=== PATIENT | male | born 1935 | race Caucasian/White ===

== ENCOUNTER 2017-10-29 03:33 | Inpatient (IN) | payer MEDICARE, OTHER ==
[2017-10-29 03:43] VITALS: BMI 25.6
[2017-10-29] MEDS ORDERED: ONDANSETRON 4 MG/2 ML VIAL IVPB ONE (04:31)
[2017-10-29] MEDS ORDERED: FAMOTIDINE 20 MG/50 ML IVPB 20 MG/50 ML MG IVPB ONE ×2 (04:31→05:58)
[2017-10-29] MEDS ORDERED: morphine CARPU-JECT 2 MG/1 ML DISP.SYRIN IVPUSH ONE (04:31)
--- NOTE | 2017-10-29 04:40 | PDOC ---
History of Present Illness - History of Present Illness Initial Comments: 10/29/17 05:08 The patient is a 82 year old male, with a significant past medical history of HTN, CAD, PAD, A-fib (on Eliquis), pancreatitis on creon, OA,and RA, who presents to the emergency department with, 2 days of right upper quadrant pain. As per patient, his symptoms onset yesterday and is described as constant radiating to his right shoulder. He reports nausea with one episode of emesis. He denies any recent fevers, chills, headache or dizziness. He denies any recent diarrhea or constipation. He denies any recent chest pain or shortness of breath. He denies any recent dysuria, frequency, urgency or hematuria. Allergies: NKA Past surgical history: None reported. Social History: Nonsmoker. Denies EtOH use and recreational drug use. Primary Care Physician: Dr. Cazares <Farnaz Rodriguez - Last Filed: 10/29/17 06:39> - General History Source: Patient Exam Limitations: No Limitations <Dvein Everett - Last Filed: 10/31/17 08:46> - General Chief Complaint: Pain Stated Complaint: ABDOMINAL PAIN Time Seen by Provider: 10/29/17 04:05 Past History <Farnaz Rodriguez - Last Filed: 10/29/17 06:39> - Past Medical History Cardiac Disorders: Yes (a-fib) COPD: No GI Disorders: Yes (pancreas, cholelithiasis) HTN: Yes Hypercholesterolemia: Yes Lung CA: Yes (?) - Surgical History Abdominal Surgery: Yes (umbilical hernia repair) Cholecystectomy: (needs sx but has not done it due to Afib) - Immunization History Immunization Up to Date: Yes - Suicide/Smoking/Psychosocial Hx Smoking History: Never smoked Information on smoking cessation initiated: No Hx Alcohol Use: No Drug/Substance Use Hx: No Substance Use Type: None, Alcohol <Devin Everett - Last Filed: 10/31/17 08:46> - Past Medical History Allergies/Adverse Reactions: Allergies Allergy/AdvReac Type Severity Reaction Status Date / Time No Known Allergies Allergy Verified 10/12/17 18:58 Home Medications: Ambulatory Orders Amlodipine Besylate 5 mg PO DAILY 10/12/17 Apixaban [Eliquis] 5 mg PO BID 10/12/17 Atorvastatin Ca [Lipitor] 20 mg PO HS 10/12/17 Carvedilol 12.5 mg PO DAILY 10/12/17 Furosemide [Lasix -] 20 mg PO DAILY 10/12/17 Losartan Potassium 100 mg PO DAILY 10/12/17 Naproxen 500 mg PO DAILY 10/12/17 Tamsulosin HCl 0.4 mg PO DAILY 10/12/17 Acetaminophen [Tylenol -] 650 mg PO Q6H PRN 10/29/17 Bimatoprost [Lumigan] 1 drop OU HS 10/29/17 Lipase/Protease/Amylase [Miky Robbins 36,000 Units Capsule] 2 each PO BID 10/29/17 Naproxen/Esomeprazole Mag [Eber Robbins 500-20 mg Tablet] 1 each PO DAILY 10/29/17 Review of Systems - Review of Systems Able to Perform ROS?: Yes Comments:: 10/29/17 05:09 GENERAL/CONSTITUTIONAL: No fever or chills. No weakness. HEAD, EYES, EARS, NOSE AND THROAT: No change in vision. No ear pain or discharge. No sore throat. CARDIOVASCULAR: No chest pain or shortness of breath. RESPIRATORY: No cough, wheezing, or hemoptysis. +GASTROINTESTINAL: RUQ abdominal pain. Nausea and vomiting. No diarrhea or constipation. GENITOURINARY: No dysuria, frequency, or change in urination. MUSCULOSKELETAL: No joint or muscle swelling or pain. No neck or back pain. SKIN: No rash NEUROLOGIC: No headache, vertigo, loss of consciousness, or change in strength/ sensation. ENDOCRINE: No increased thirst. No abnormal weight change. HEMATOLOGIC/LYMPHATIC: No anemia, easy bleeding, or history of blood clots. ALLERGIC/IMMUNOLOGIC: No hives or skin allergy. All Other Systems: Reviewed and Negative <Farnaz Rodriguez - Last Filed: 10/29/17 06:39> *Physical Exam - Vital Signs Last Vital Signs Temp Pulse Resp BP Pulse Ox 99.9 F H 68 20 157/85 95 10/29/17 03:40 10/29/17 03:40 10/29/17 03:40 10/29/17 03:40 10/29/17 03:40 - Physical Exam Comments: 10/29/17 05:10 GENERAL: Awake, alert, and fully oriented, in no acute distress HEAD: No signs of trauma EYES: PERRLA, EOMI, sclera anicteric, conjunctiva clear ENT: Auricles normal inspection, hearing grossly normal, nares patent, oropharynx clear without exudates. Moist mucosa NECK: Normal ROM, supple, no lymphadenopathy, JVD, or masses LUNGS: Breath sounds equal, clear to auscultation bilaterally. No wheezes, and no crackles +HEART: Irregularly irregular. no murmurs, rubs or gallops +ABDOMEN: Tenderness to RUQ and epigastric region. [place] negative. Soft, normoactive bowel sounds. No guarding, no rebound. No masses EXTREMITIES: Normal range of motion, no edema. No clubbing or cyanosis. No cords, erythema, or tenderness NEUROLOGICAL: Cranial nerves II through XII grossly intact. Normal speech, normal gait SKIN: Warm, Dry, normal turgor, no rashes or lesions noted. <Farnaz Rodriguez - Last Filed: 10/29/17 06:39> - Vital Signs Last Vital Signs Temp Pulse Resp BP Pulse Ox 99.9 F H 68 20 157/85 95 10/29/17 03:40 10/29/17 03:40 10/29/17 03:40 10/29/17 03:40 10/29/17 03:40 <Devin Everett - Last Filed: 10/31/17 08:46> ED Treatment Course - LABORATORY CBC & Chemistry Diagram: 10/29/17 05:20 10/29/17 05:20 <Farnaz Rodriguez - Last Filed: 10/29/17 06:39> - LABORATORY CBC & Chemistry Diagram: 10/31/17 06:10 10/31/17 06:10 - RADIOLOGY Radiology Studies Ordered: Category Date Time Status CHEST X-RAY PORTABLE* [RAD] Stat Radiology 10/29/17 04:30 Ordered ABDOMEN US [US] Stat Ultrasound 10/29/17 04:30 Ordered <Devin Everett - Last Filed: 10/31/17 08:46> Medical Decision Making - Medical Decision Making 10/29/17 04:37 A portion of this note was written by my scribe, under my supervision. Vital Signs Temp Pulse Resp BP Pulse Ox 99.9 F H 68 20 157/85 95 10/29/17 03:40 10/29/17 03:40 10/29/17 03:40 10/29/17 03:40 10/29/17 03:40 82 year old M c/ hx of HTN, OA, RA, CAD, PAD, pancreatitis on creon p/w RUQ pain since yesterday. The patient reports that he was unable to sleep. Had constant RUQ pain radiating to right shoulder. Stated that he felt nauseous and vomited once. Denies fevers at home. Denies diarrhea. Pt states that he has had issues with his gallbladder and pancreas before. Denies chest pain, SOB. Pt is quite tender in the RUQ. Temp is 99.9 degrees. Will need to r/o acute cholecystitis, vs. biliary colic. Labs including lipase, RUQ ultrasound, and labs. Pain control and reassess. 10/29/17 07:00 CBC, BMP 10/29/17 05:20 10/29/17 05:20 CMP Sodium 141 mmol/L (136-145) 10/29/17 05:20 Potassium 4.0 mmol/L (3.5-5.1) 10/29/17 05:20 Chloride 105 mmol/L (98-107) 10/29/17 05:20 Carbon Dioxide 27 mmol/L (21-32) 10/29/17 05:20 Anion Gap 9 (8-16) 10/29/17 05:20 BUN 12 mg/dL (7-18) 10/29/17 05:20 Creatinine 0.9 mg/dL (0.7-1.3) 10/29/17 05:20 Creat Clearance w eGFR > 60 (>60) 10/29/17 05:20 Random Glucose 104 mg/dL (74-106) 10/29/17 05:20 Lactic Acid 2.7 mmol/L (0.0-2.0) H* 10/29/17 05:20 Calcium 9.3 mg/dL (8.5-10.1) 10/29/17 05:20 Phosphorus 3.1 mg/dL (2.5-4.9) 10/29/17 05:20 Magnesium 1.8 mg/dL (1.8-2.4) 10/29/17 05:20 Total Bilirubin 0.8 mg/dL (0.2-1.0) 10/29/17 05:20 AST 14 U/L (15-37) L 10/29/17 05:20 ALT 21 U/L (12-78) 10/29/17 05:20 Alkaline Phosphatase 91 U/L (45-117) 10/29/17 05:20 Creatine Kinase 219 IU/L (39-308) 10/29/17 05:20 Creatine Kinase Index 0.5 % (0.0-5.0) 10/29/17 05:20 CK-MB (CK-2) 1.31 ng/mL (0.5-3.6) 10/29/17 05:20 Troponin I 0.02 ng/ml (0.00-0.05) 10/29/17 05:20 Total Protein 8.0 g/dl (6.4-8.2) 10/29/17 05:20 Albumin 3.8 g/dl (3.4-5.0) 10/29/17 05:20 Lipase 58 U/L (73-393) L 10/29/17 05:20 Lactic acid 2.7. Ultrasound pending. Case signed out to day time attending Dr. Biggs for further management and disposition. <Devin Everett - Last Filed: 10/31/17 08:46> *DC/Admit/Observation/Transfer - Attestations Scribe Attestion: 10/29/17 05:10 Documentation prepared by Farnaz Rodriguez, acting as medical front desk coordinator for Devin Everett MD. <Farnaz Rodriguez - Last Filed: 10/29/17 06:39> <Devin Everett - Last Filed: 10/31/17 08:46> Diagnosis at time of Disposition: Cholecystitis - Discharge Dispostion Condition at time of disposition: Stable
[2017-10-29 05:29] LABS: BASO % 0.5 % (0-2.0); EOS % 0.3 % (0-4.5); HEMOGLOBIN 13.3 GM/dL (11.7-16.9); LYMPH % 20.4 % (8-40); MCH 31.1 pg (25.7-33.7); MCHC 33.2 g/dl (32.0-35.9); MEAN CELL VOLUME 93.8 fl (80-96); MEAN PLT VOLUME 10.5 fl (7.5-11.1); MONO % 9.1 % (3.8-10.2); NEUT % 69.7 % (42.8-82.8); PLATELET COUNT 148 K/MM3 (134-434); RBC 4.26 M/mm3 (4.00-5.60); RDW 14.4 % (11.9-15.9); WHITE BLOOD COUNT 4.5 K/mm3 (4.0-10.0)
[2017-10-29 05:55] LABS: ALBUMIN 3.8 g/dl (3.4-5.0); ANION GAP 9 (8-16); BILIRUBIN,TOTAL 0.8 mg/dL (0.2-1.0); BLOOD UREA NITROGEN 12 mg/dL (7-18); CALCIUM 9.3 mg/dL (8.5-10.1); CHLORIDE 105 mmol/L (98-107); CO2 27 mmol/L (21-32); CREATININE 0.9 mg/dL (0.7-1.3); GLUCOSE,RANDOM 104 mg/dL (74-106); LIPASE 58 U/L (73-393); MAGNESIUM 1.8 mg/dL (1.8-2.4); PHOSPHOROUS 3.1 mg/dL (2.5-4.9); SGOT/AST 14 U/L (15-37); SGPT/ALT 21 U/L (12-78); SODIUM 141 mmol/L (136-145)
[2017-10-29 05:56] LABS: ALK PHOS 91 U/L (45-117)
[2017-10-29] MEDS ORDERED: ONDANSETRON 4 MG/2 ML VIAL ONE (05:58)
[2017-10-29] MEDS ORDERED: MORPHINE SULFATE 2 MG/ML VIAL ONE (05:58)
[2017-10-29 07:15] LABS: INR 1.56 (0.82-1.09); PROTHROMBIN TIME (PATIENT) 17.6 SEC (9.7-13.0)
--- NOTE | 2017-10-29 07:19 | PDOC ---
*Physical Exam - Vital Signs Last Vital Signs Temp Pulse Resp BP Pulse Ox 99.9 F H 68 20 157/85 95 10/29/17 03:40 10/29/17 03:40 10/29/17 03:40 10/29/17 03:40 10/29/17 03:40 - Physical Exam Comments: 10/29/17 08:16 Appearance: appears in pain. HEENT: head is normocephalic, atraumatic. EOMI. PERRLA. Neck: supple without lymphadenopathy Heart: regular rhythm. Murmur noted. Lungs: clear to auscultation bilaterally. no crackles, rhonchi or wheezing. no stridor. Abdomen: soft, flat. moderate RUQ and RLQ tenderness to palpation. normal bowel sounds. no rebound, guarding, masses. Extremities: Peripheral pulses intact and equal. No lower extremity edema. Neurological: Alert. Oriented x3. CN 2-12 grossly intact. Moves all four extremities. ED Treatment Course - LABORATORY CBC & Chemistry Diagram: 10/29/17 05:20 10/29/17 05:20 - ADDITIONAL ORDERS Additional order review: Laboratory Results 10/29/17 10/29/17 10/29/17 05:20 05:20 05:20 INR 1.56 H PTT (Actin FS) 33.0 Sodium 141 Potassium 4.0 Chloride 105 Carbon Dioxide 27 Anion Gap 9 BUN 12 Creatinine 0.9 Creat Clearance w eGFR > 60 Random Glucose 104 Lactic Acid 2.7 H* Calcium 9.3 Phosphorus 3.1 Magnesium 1.8 Total Bilirubin 0.8 AST 14 L ALT 21 Alkaline Phosphatase 91 Creatine Kinase 219 Creatine Kinase Index 0.5 CK-MB (CK-2) 1.31 Troponin I 0.02 Total Protein 8.0 Albumin 3.8 Lipase 58 L 10/29/17 05:20 RBC 4.26 MCV 93.8 MCHC 33.2 RDW 14.4 MPV 10.5 Neutrophils % 69.7 Lymphocytes % 20.4 Monocytes % 9.1 Eosinophils % 0.3 Basophils % 0.5 - Medications Given in the ED: ED Medications Discontinued Medications Generic Name Dose Route Start Last Admin Trade Name Freq PRN Reason Stop Dose Admin Famotidine/Sodium Chloride 20 mg in 50 mls @ 100 mls/hr 10/29/17 04:31 06:10 Pepcid 20 Mg Premixed Ivpb - IVPB 10/29/17 05:00 100 mls/hr ONCE ONE Administration Morphine Sulfate 2 mg 10/29/17 04:31 10/29/17 06:09 Morphine Injection - IVPUSH 10/29/17 04:32 2 mg ONCE ONE Administration Ondansetron HCl 4 mg 10/29/17 04:31 10/29/17 06:10 Zofran Injection IVPB 10/29/17 04:32 4 mg ONCE ONE Administration Medical Decision Making - Medical Decision Making 10/29/17 08:18 82 year old male with chronic pancreatitis, HTN, HLD, CAD, A-fib, OA, RA presenting for RUQ pain radiating to the shoulder, associated with nausea and 1 episode of vomiting. Initial Vital Signs Temp Pulse Resp BP Pulse Ox 99.9 F H 68 20 157/85 95 10/29/17 03:40 10/29/17 03:40 10/29/17 03:40 10/29/17 03:40 10/29/17 03:40 Mild fever, no tachycardia, no hypotension. CBC/CMP within normal limits. Lactate 2.7. Lipase within normal limits. Pt given Pepcid, Morphine 2 mg, and Zofran with slight improvement of pain. Pending RUQ US, CXR. 10/29/17 08:41 RUQ US report - 1.3 cm round calculus in the GB neck. mild diffuse GB wall thickening. trace perihepatic fluid. Pending rectal temperature. IV fluids ordered. Will page surgery. 10/29/17 09:27 Rectal temperature 100.8 10/29/17 09:[address] Watters, who will consult on the patient, he states he believes the patient may be a better candidate for IR than surgery. Pending Dr. Watters' evaluation. 10/29/17 10:01 I spoke with Fauzia Morgan, who is covering for Dr. Guallpa, and discussed the case. She will wait on Dr. Lagunas's evaluation before putting in admission orders. 10/29/17 10:[address] Watters, who states he will accept the patient, to be admitted to Dr. Guallpa. 10/29/17 11:34 I spoke with the patient via engineering manager phone, and informed him that he will be admitted to the hospital for surgical removal of his gallbladder. He stated he understood and agreed with the plan of care. *DC/Admit/Observation/Transfer Diagnosis at time of Disposition: Cholecystitis - Discharge Dispostion Condition at time of disposition: Stable Decision to Admit order: Yes - Referrals - Patient Instructions - Post Discharge Activity
[2017-10-29] MEDS ORDERED: SODIUM CHLORIDE 1,000 ML IV STA (08:40)
[2017-10-29] MEDS ORDERED: SODIUM CHLORIDE 0.9% 500 ML INFUS.BAG IV ONE (10:47)
[2017-10-29] MEDS ORDERED: PIPERACILLIN/TAZOB 3.375 GM 3.375 GM in DEXTROSE 5%-WATER - 50 ML IVPB ONE (10:51)
[2017-10-29] MEDS ORDERED: CEFOXITIN SODIUM 1 GM in DEXTROSE 5%-WATER - 100 ML IVPB ONE (10:56)
--- NOTE | 2017-10-29 10:57 | CONSULT ---
Consult Consult Specialty:: General Surgery Reason for Consultation:: Cholelithiasis and biliary colic - History of Present Illness Chief Complaint: Abdominal pain History of Present Illness: 82yo male PMH HTN, CAD, PAD, A-fib (on Eliquis), pancreatitis on creon, OA,and RA, who presents to the emergency department with, 2 days of right upper quadrant pain. He reported that his symptoms started yesterday after a mid day meal. He has had similar pain in the past but this was more severe rated 7/10 and described as constant radiating to his right shoulder. He decided to come to the hospital when he had an episode of nausea with one episode of emesis ( non bloody). He denies any recent fevers, chills, headache or dizziness. He denies any recent diarrhea or constipation. He denies any recent chest pain or shortness of breath. He denies any recent dysuria, frequency, urgency or hematuria. Ultrasound confirms cholelithiasis with choninc GB wall changes. We were asked to assess. - History Source History Provided By: Patient, Medical Record Limitations to Obtaining History: No Limitations - Past Medical History Cardio/Vascular: Yes: AFIB, CAD, HTN, Hyperlipdemia - Alcohol/Substance Use Hx Alcohol Use: No History of Substance Use: reports: None - Smoking History Smoking history: Never smoked - Social History Usual Living Arrangement: With Spouse Place of : Other History of Recent Travel: No Home Medications - Allergies Allergies/Adverse Reactions: Allergies Allergy/AdvReac Type Severity Reaction Status Date / Time No Known Allergies Allergy Verified 10/12/17 18:58 - Home Medications Home Medications: Ambulatory Orders Amlodipine Besylate 5 mg PO DAILY 10/12/17 Apixaban [Eliquis] 5 mg PO BID 10/12/17 Atorvastatin Ca [Lipitor] 20 mg PO HS 10/12/17 Carvedilol 12.5 mg PO DAILY 10/12/17 Furosemide [Lasix -] 20 mg PO DAILY 10/12/17 Losartan Potassium 100 mg PO DAILY 10/12/17 Naproxen 500 mg PO DAILY 10/12/17 Tamsulosin HCl 0.4 mg PO DAILY 10/12/17 Acetaminophen [Tylenol -] 650 mg PO Q6H PRN 10/29/17 Bimatoprost [Lumigan] 1 drop OU HS 10/29/17 Lipase/Protease/Amylase [Miky Robbins 36,000 Units Capsule] 2 each PO BID 10/29/17 Naproxen/Esomeprazole Mag [Eber Robbins 500-20 mg Tablet] 1 each PO DAILY 10/29/17 Review of Systems - Review of Systems Constitutional: denies: Chills, Fever Eyes: denies: Blurred Vision, Recent Change in Vision HENT: denies: Difficult Swallowing, Throat Pain Neck: denies: Stiffness, Swollen Glands, Tenderness Cardiovascular: denies: Chest Pain, Palpitations Respiratory: denies: Cough, SOB Gastrointestinal: reports: Abdominal Pain, Indigestion, Nausea, Vomiting Genitourinary: denies: Discharge, Dysuria Breasts: reports: No Symptoms Reported. denies: Pain Musculoskeletal: denies: Muscle Pain, Muscle Weakness Integumentary: denies: Bruising, Erythema Neurological: denies: Seizure, Syncope Endocrine: denies: Unexplained Weight Gain, Unexplained Weight Loss Hematology/Lymphatic: denies: Easily Bruised, Excessive Bleeding Psychiatric: denies: Anxiety, Depression Physical Exam Vital Signs: Vital Signs Temperature 100.8 F H 10/29/17 09:30 Pulse Rate 68 10/29/17 03:40 Respiratory Rate 20 10/29/17 03:40 Blood Pressure 157/85 10/29/17 03:40 O2 Sat by Pulse Oximetry (%) 99 10/29/17 09:30 Vital Signs Period Temp Pulse Resp BP Sys/Mi Pulse Ox Last 24 Hr 99.9 F-100.8 F 68 20 157/85 95-99 Constitutional: Yes: Well Nourished, No Distress, Calm Eyes: Yes: Conjunctiva Clear, EOM Intact HENT: Yes: Atraumatic, Normocephalic Neck: Yes: Supple, Trachea Midline Cardiovascular: Yes: Pulse Irregular, S1, S2 Respiratory: Yes: Regular, CTA Bilaterally Gastrointestinal: Yes: Normal Bowel Sounds, Soft, Tenderness (+murphys, RUQ tenderness), Tenderness, Epigastrium. No: Abdomen, Obese, Distention, Tenderness, Rebound Renal/: No: CVA Tenderness - Left, CVA Tenderness - Right Musculoskeletal: No: Muscle Pain, Muscle Weakness Extremities: No: Cool, Cyanosis Integumentary: No: Incision, Jaundice Neurological: Yes: Alert, Oriented Psychiatric: Yes: Alert, Oriented Labs: CBC, BMP 10/29/17 05:20 10/29/17 05:20 Imaging - Results Ultrasound: Report Reviewed, Image Reviewed (normal CBD, 1.3 cm stone at neck of GB.) Problem List - Problems (1) Calculus gallbladder and bile duct w/acute cholecystitis and obstructn Assessment/Plan: 82yo male MMP including Afib on eloquis presented with early acute cholecystitis, +murphys, low grade fever (Tmax 100.6) NPO and IVF resuscitation empiric IV antibiotics Trend labs Hold eloquis, transition to heparin GI consult Medical clearance in anticipation of surgery or IR intervention on 10/31/17 will follow Thank you for the opportunity to participate in the care of this patient. Code(s): K80.63 - CALCULUS OF GB AND BILE DUCT W ACUTE CHOLECYST W OBSTRUCTION (2) Afib Code(s): I48.91 - UNSPECIFIED ATRIAL FIBRILLATION Qualifiers: Atrial fibrillation type: chronic Qualified Code(s): I48.2 - Chronic atrial fibrillation (3) CAD (coronary artery disease) Code(s): I25.10 - ATHSCL HEART DISEASE OF [place] CORONARY ARTERY W/O ANG PCTRS (4) Spinal stenosis Code(s): M48.00 - SPINAL STENOSIS, SITE UNSPECIFIED
[2017-10-29] MEDS: HEPARIN NA (PORCINE) 5,000 UNITS/ML 1ML VIAL SQ SCH ×2 (11:19→17:40)
[2017-10-29] MEDS ORDERED: METOPROLOL TARTRATE 5 MG/5 ML VIAL IVPUSH PRN (11:20)
[2017-10-29] MEDS ORDERED: HEPARIN NA (PORCINE) 5,000 UNITS/ML 1ML VIAL ONE (11:26)
--- NOTE | 2017-10-29 12:46 | CON.CARD ---
Consult Consult Specialty:: Cardiology Referred by:: Cathy Cage Reason for Consultation:: Pre-operative cardiovascular evaluation - History of Present Illness Chief Complaint: Cholelithiasis with biliary colic History of Present Illness: 82yo male PMH HTN, CAD, PAD, A-fib (on Eliquis), pancreatitis on creon, OA,and RA, who presented with, 2 days of crampy right upper quadrant pain. He reported that his symptoms started yesterday after a mid day meal. He has had similar pain in the past but this was more severe rated 7/10 and described as constant radiating to his right shoulder associated with nausea and nonbloody emesis. He denies any recent fevers, chills, headache or dizziness. He denies any recent diarrhea or constipation. He denies any recent chest pain or shortness of breath, near or true syncope, palpitations, orthopnea, PND or LE edema. Ultrasound confirms cholelithiasis with chonic GB wall changes. Sees Emma Mcconnell for cardiology - History Source History Provided By: Medical Record Limitations to Obtaining History: Language Barrier - Past Medical History Cardio/Vascular: Yes: AFIB, CAD, HTN, Hyperlipdemia Hepatobiliary: Yes: Cholelithiasis - Alcohol/Substance Use Hx Alcohol Use: No History of Substance Use: reports: None - Smoking History Smoking history: Never smoked - Social History Usual Living Arrangement: With Spouse History of Recent Travel: No Home Medications - Allergies Allergies/Adverse Reactions: Allergies Allergy/AdvReac Type Severity Reaction Status Date / Time No Known Allergies Allergy Verified 10/12/17 18:58 - Home Medications Home Medications: Ambulatory Orders Amlodipine Besylate 5 mg PO DAILY 10/12/17 Apixaban [Eliquis] 5 mg PO BID 10/12/17 Atorvastatin Ca [Lipitor] 20 mg PO HS 10/12/17 Carvedilol 12.5 mg PO DAILY 10/12/17 Furosemide [Lasix -] 20 mg PO DAILY 10/12/17 Losartan Potassium 100 mg PO DAILY 10/12/17 Naproxen 500 mg PO DAILY 10/12/17 Tamsulosin HCl 0.4 mg PO DAILY 10/12/17 Acetaminophen [Tylenol -] 650 mg PO Q6H PRN 10/29/17 Bimatoprost [Lumigan] 1 drop OU HS 10/29/17 Lipase/Protease/Amylase [Miky Robbins 36,000 Units Capsule] 2 each PO BID 10/29/17 Naproxen/Esomeprazole Mag [Eber Robbins 500-20 mg Tablet] 1 each PO DAILY 10/29/17 Review of Systems - Review of Systems Gastrointestinal: reports: Abdominal Pain, Nausea, Vomiting Vital Signs: Vital Signs Temperature 98.8 F 10/29/17 11:00 Pulse Rate 68 10/29/17 12:03 Respiratory Rate 16 10/29/17 12:03 Blood Pressure 112/64 10/29/17 12:03 O2 Sat by Pulse Oximetry (%) 98 10/29/17 12:03 Constitutional: Yes: No Distress, Calm Neck: Yes: Supple Respiratory: Yes: Regular, Diminished Gastrointestinal: Yes: Soft, Hypoactive Bowel Sounds, Tenderness (RUQ with + [place]keefe's sign) Cardiovascular: Yes: Pulse Irregular JVD: No Carotid Bruit: No Heart Sounds: Yes: S1, S2 Murmur: Yes: Systolic Murmur, Grade 1 Edema: No - Other Data Labs, Other Data: CBC, BMP 10/29/17 05:20 10/29/17 05:20 INR, PTT INR 1.56 (0.82-1.09) H 10/29/17 05:20 Troponin, BNP 10/29/17 05:20 Troponin I 0.02 Troponin, BNP 10/29/17 05:20 Troponin I 0.02 Afib @ 68 LAD, LBBB Ejection Fraction %: LVEF > or = 40 % Imaging - Results Chest X-ray: Report Reviewed (Cardiomegaly) Problem List - Problems (1) Pre-operative cardiovascular examination Code(s): Z01.810 - ENCOUNTER FOR PREPROCEDURAL CARDIOVASCULAR EXAMINATION (2) Hypertensive cardiomyopathy Code(s): I11.9 - HYPERTENSIVE HEART DISEASE WITHOUT HEART FAILURE; I43 - CARDIOMYOPATHY IN DISEASES CLASSIFIED ELSEWHERE Qualifiers: Heart failure presence: without heart failure Qualified Code(s): I11.9 - Hypertensive heart disease without heart failure; I43 - Cardiomyopathy in diseases classified elsewhere (3) Hyperlipidemia Code(s): E78.5 - HYPERLIPIDEMIA, UNSPECIFIED Qualifiers: Hyperlipidemia type: pure hypercholesterolemia Qualified Code(s): E78.00 - Pure hypercholesterolemia, unspecified; E78.0 - Pure hypercholesterolemia (4) Diastolic dysfunction without heart failure Code(s): I51.89 - OTHER ILL-DEFINED HEART DISEASES (5) Afib Code(s): I48.91 - UNSPECIFIED ATRIAL FIBRILLATION Qualifiers: Atrial fibrillation type: chronic Qualified Code(s): I48.2 - Chronic atrial fibrillation (6) CAD (coronary artery disease) Code(s): I25.10 - ATHSCL HEART DISEASE OF [place] CORONARY ARTERY W/O ANG PCTRS (7) Calculus gallbladder and bile duct w/acute cholecystitis and obstructn Code(s): K80.63 - CALCULUS OF GB AND BILE DUCT W ACUTE CHOLECYST W OBSTRUCTION (8) Spinal stenosis Code(s): M48.00 - SPINAL STENOSIS, SITE UNSPECIFIED (9) Left bundle branch block (LBBB) Code(s): I44.7 - LEFT BUNDLE-BRANCH BLOCK, UNSPECIFIED Assessment/Plan 07/15/2017 Pharm stress: Mild anterior, moderate inferoapical and mild inferolateral ischemia, LVEF [id number] 1. Pre-operative cardiovascular evaluation prior to laparoscopic cholecystectomy 2. Acute cholecystitis with gallbladder calculus 3. Persistent afib on NOAC 4. CAD with abnormal MPI 5. HTN/HCVD 6. Hyperlipidemia 7. Spinal stenosis 8. Diastolic dysfunction, euvolemic 9. Complete LBBB P:1. Hold Eliquis laureen-op, on IV Lopressor as patient is NPO 2. Given absence of acute coronary syndrome, decompensated CHF or malignant arrhythmia, may proceed with laparoscopic cholecystectomy or tube cholecystotomy from CV-standpoint without further testing 3. DVT and GI prophylaxis, analgesia as needed 4. Thank you for consultative opportunity, will f/u with Dr. Emma rodriguez d/c.
[2017-10-29] MEDS ORDERED: ACETAMINOPHEN 325 MG TABLET (FP) PO PRN (13:52)
--- NOTE | 2017-10-29 13:55 | HP ---
Admitting History and Physical - Primary Care Physician PCP: Roland Guallpa - Admission Chief Complaint: Abdominal pain History of Present Illness: The patient is a 82 year old male, with a significant past medical history of HTN, CAD, PAD, A-fib (on Eliquis), pancreatitis on creon, OA,and RA, who presents to the emergency department with, 2 days of right upper quadrant pain. As per patient, his symptoms onset yesterday and is described as constant radiating to his right shoulder. He reports nausea with one episode of emesis. He denies any recent fevers, chills, headache or dizziness. He denies any recent diarrhea or constipation. He denies any recent chest pain or shortness of breath. He denies any recent dysuria, frequency, urgency or hematuria. History Source: Patient, Medical Record Limitations to Obtaining History: Language Barrier - Past Medical History Cardiovascular: Yes: AFIB, CAD, HTN, Hyperlipdemia Hepatobiliary: Yes: Cholelithiasis - Smoking History Smoking history: Never smoked - Alcohol/Substance Use Hx Alcohol Use: No History of Substance Use: reports: None - Social History History of Recent Travel: No Home Medications - Allergies Allergies/Adverse Reactions: Allergies Allergy/AdvReac Type Severity Reaction Status Date / Time No Known Allergies Allergy Verified 10/12/17 18:58 - Home Medications Home Medications: Ambulatory Orders Amlodipine Besylate 5 mg PO DAILY 10/12/17 Apixaban [Eliquis] 5 mg PO BID 10/12/17 Atorvastatin Ca [Lipitor] 20 mg PO HS 10/12/17 Carvedilol 12.5 mg PO DAILY 10/12/17 Furosemide [Lasix -] 20 mg PO DAILY 10/12/17 Losartan Potassium 100 mg PO DAILY 10/12/17 Naproxen 500 mg PO DAILY 10/12/17 Tamsulosin HCl 0.4 mg PO DAILY 10/12/17 Acetaminophen [Tylenol -] 650 mg PO Q6H PRN 10/29/17 Bimatoprost [Lumigan] 1 drop OU HS 10/29/17 Lipase/Protease/Amylase [Miky Robbins 36,000 Units Capsule] 2 each PO BID 10/29/17 Naproxen/Esomeprazole Mag [Eber Robbins 500-20 mg Tablet] 1 each PO DAILY 10/29/17 Review of Systems - Review of Systems Constitutional: reports: No Symptoms Eyes: reports: No Symptoms HENT: reports: No Symptoms Neck: reports: No Symptoms Cardiovascular: reports: No Symptoms Respiratory: reports: No Symptoms Gastrointestinal: reports: Abdominal Pain, Nausea, Vomiting Genitourinary: reports: No Symptoms Breasts: reports: No Symptoms Reported Musculoskeletal: reports: No Symptoms Integumentary: reports: No Symptoms Neurological: reports: No Symptoms Endocrine: reports: No Symptoms Hematology/Lymphatic: reports: No Symptoms Psychiatric: reports: No Symptoms Physical Examination Vital Signs: Vital Signs Temperature 99.6 F 10/29/17 13:45 Pulse Rate 68 10/29/17 13:45 Respiratory Rate 18 10/29/17 13:45 Blood Pressure 100/65 10/29/17 13:45 O2 Sat by Pulse Oximetry (%) 98 10/29/17 13:37 Constitutional: Yes: Well Nourished, No Distress, Calm Cardiovascular: Yes: Regular Rate and Rhythm Respiratory: Yes: Regular Gastrointestinal: Yes: Tenderness (RUQ), Tenderness, Epigastrium Labs: CBC, BMP 10/29/17 05:20 10/29/17 05:20 Imaging - Results Ultrasound: Report Reviewed Problem List - Problems (1) Afib Assessment/Plan: -Eliquis on hold -Seen by Cardiology -No need for bridging, benefit=risks as per data Code(s): I48.91 - UNSPECIFIED ATRIAL FIBRILLATION Qualifiers: Atrial fibrillation type: chronic Qualified Code(s): I48.2 - Chronic atrial fibrillation (2) Cholecystitis Assessment/Plan: -Seen by GI and Surgery -Plan for Choleycystectomy on Tuesday -NPO except meds -IVF -Zosyn q8h Code(s): K81.9 - CHOLECYSTITIS, UNSPECIFIED (3) Lactic acidosis Assessment/Plan: -IVF -resolved Code(s): E87.2 - ACIDOSIS (4) Thrombocytopenia Assessment/Plan: -Repeat labs in AM Code(s): D69.6 - THROMBOCYTOPENIA, UNSPECIFIED Assessment/Plan See problem list DVT prophylaxis Physical therapy Dispo: home with VNS
--- NOTE | 2017-10-29 15:14 | CON.GI ---
Consult Consult Specialty:: GI Referred by:: Cathy Cage NP Reason for Consultation:: Acute Cholecystitis - History of Present Illness Chief Complaint: [facility] [id number] History of Present Illness: 82M admitted for evaluation of RUQ pain since yesterday. Mr. Xiong tells me that he had a similar episode in June, when he was admitted at [facility]. He explains that they wanted to perform surgery for his gallbladder at that time however it was not performed secondary to his "Heart Problem". When asked about his pancreas and pancreatic cyst, it seems as though he knows about it and a "problem with the pancreas" for which he was started on "a medicine in [place]". This was 15 years ago and it appears as though he is on pancreatic supplementation as an outpatient that is prescribed by his PMD. Preumably, this means he was treated at [facility] for ? pancreatitis. He has been having fevers, WBC on admission was normal as were LFTs. Abdominal US revealed a gallstone at the neck of the gallbladder and gallbladder wall thickening. It also revealed a 1.7cm hepatic cyst with thickened internal septation. Mr. Xiong is not aware of having a liver cyst in the past. - History Source History Provided By: Patient - Past Medical History Cardio/Vascular: Yes: AFIB, CAD, HTN, Hyperlipdemia Gastrointestinal: Yes: Pancreatitis (per the H&P. ? 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) History of Substance Use: reports: None - Smoking History Smoking history: Never smoked - Social History Usual Living Arrangement: With Spouse ADL: Independent Place of : Other ([facility]) History of Recent Travel: No Home Medications - Allergies Allergies/Adverse Reactions: Allergies Allergy/AdvReac Type Severity Reaction Status Date / Time No Known Allergies Allergy Verified 10/12/17 18:58 - Home Medications Home Medications: Ambulatory Orders Amlodipine Besylate 5 mg PO DAILY 10/12/17 Apixaban [Eliquis] 5 mg PO BID 10/12/17 Atorvastatin Ca [Lipitor] 20 mg PO HS 10/12/17 Carvedilol 12.5 mg PO DAILY 10/12/17 Furosemide [Lasix -] 20 mg PO DAILY 10/12/17 Losartan Potassium 100 mg PO DAILY 10/12/17 Naproxen 500 mg PO DAILY 10/12/17 Tamsulosin HCl 0.4 mg PO DAILY 10/12/17 Acetaminophen [Tylenol -] 650 mg PO Q6H PRN 10/29/17 Bimatoprost [Lumigan] 1 drop OU HS 10/29/17 Lipase/Protease/Amylase [Miky Robbins 36,000 Units Capsule] 2 each PO BID 10/29/17 Naproxen/Esomeprazole Mag [Eber Robbins 500-20 mg Tablet] 1 each PO DAILY 10/29/17 Family Disease History - Family Disease History Other Family History: No family history of colorectal cancer Review of Systems - Review of Systems Constitutional: reports: Fever. denies: Unintentional Wgt. Loss Cardiovascular: denies: Chest Pain Respiratory: denies: SOB Gastrointestinal: reports: Abdominal Pain. denies: Diarrhea, Melena, Rectal Bleeding Physical Exam-GI Vital Signs: Vital Signs Temperature 99.6 F 10/29/17 13:45 Pulse Rate 68 10/29/17 13:45 Respiratory Rate 18 10/29/17 13:45 Blood Pressure 100/65 10/29/17 13:45 O2 Sat by Pulse Oximetry (%) 98 10/29/17 13:37 Constitutional: Yes: Calm Eyes: No: Sclera Icterus Respiratory: Yes: CTA Bilaterally Gastrointestinal Inspection: No: Distention, Scars ...Auscultate: Yes: Normoactive Bowel Sounds ...Palpate: Yes: Guarding (upon palpation of the RUQ), Tenderness (Marked TTP RUQ) ...Percussion: No: Tympanitic Edema: No (No LE edema) Neurological: Yes: Alert Labs: CBC, BMP 10/29/17 05:20 10/29/17 05:20 INR, PTT INR 1.56 (0.82-1.09) H 10/29/17 05:20 Imaging - Results Ultrasound: Report Reviewed Problem List - Problems (1) Acute calculous cholecystitis Assessment/Plan: Marked TTP of the RUQ on exam 4mm CBD on US and normal ALP/Bili not suggestive of CBD obstruction/cholangitis Surgery on the case. For possible cholecystectomy on tuesday after eliquis effect dissiptaes Ordered repeat labs for today as well as a CT scan of the abdomen with IV contrast for further evaluation of gallbladder and liver cyst NPO IV Hydration Would continue IV Abx:Received 1 dose of cefoxitin in ER. Ordered Zosyn 3.375g IV q 8 hours to start this afternoon If continuied fevers despite ABx, consider ID evaluation Code(s): K80.00 - CALCULUS OF GALLBLADDER W ACUTE CHOLECYST W/O OBSTRUCTION
[2017-10-29 15:44] LABS: BASO % 0.1 % (0-2.0); EOS % 0.1 % (0-4.5); HEMATOCRIT 36.2 % (35.4-49); MCH 31.2 pg (25.7-33.7); MCHC 33.3 g/dl (32.0-35.9); MEAN CELL VOLUME 93.5 fl (80-96); MEAN PLT VOLUME 11.3 fl (7.5-11.1); MONO % 8.7 % (3.8-10.2); NEUT % 74.1 % (42.8-82.8); PLATELET COUNT 127 K/MM3 (134-434); RBC 3.87 M/mm3 (4.00-5.60); RDW 14.8 % (11.9-15.9); WHITE BLOOD COUNT 9.5 K/mm3 (4.0-10.0)
[2017-10-29 15:52] LABS: ANION GAP 6 (8-16); BLOOD UREA NITROGEN 13 mg/dL (7-18); CALCIUM 8.1 mg/dL (8.5-10.1); CHLORIDE 109 mmol/L (98-107); CO2 28 mmol/L (21-32); GLUCOSE,RANDOM 90 mg/dL (74-106); POTASSIUM 3.7 mmol/L (3.5-5.1); SODIUM 143 mmol/L (136-145)
[2017-10-29 15:56] LABS: CREATININE 0.9 mg/dL (0.7-1.3); SGOT/AST 14 U/L (15-37); SGPT/ALT 16 U/L (12-78)
[2017-10-29 15:57] LABS: ALK PHOS 69 U/L (45-117); TOT PROT 6.4 g/dl (6.4-8.2)
[2017-10-29] MEDS ORDERED: DEXTROSE 5%-WATER - 50 ML IVPB ONE (17:10)
[2017-10-29] MEDS ORDERED: PIPERACILLIN/TAZOBACTAM 3.375 GM VIAL IVPB ONE (17:10)
[2017-10-29] MEDS: PIPERACILLIN/TAZOB 3.375 GM 3.375 GM in DEXTROSE 5%-WATER - 50 ML IVPB SCH (17:33)
[2017-10-29] MEDS: LIPASE/PROTEASE/AMYLASE 36,000 UNIT CAPSULE PO SCH (17:33)
[2017-10-29] MEDS ORDERED: PIPERACILLIN/TAZOB 3.375 GM 3.375 GM in DEXTROSE 5%-WATER - 50 ML IVPB SCH (18:00)
[2017-10-29] MEDS ORDERED: PT OWN MED DRAWER 7, Y5N ONE (18:03)
[2017-10-29] MEDS: MORPHINE SULFATE 2 MG/ML VIAL IVPUSH PRN (19:48)
[2017-10-29] MEDS: LATANOPROST 0.005% OPHTH SOLN 2.5ML BOTTLE OU SCH (22:56)
[2017-10-29] MEDS: ATORVASTATIN CA 20 MG TABLET (FP) PO SCH (22:56)
[2017-10-29] MEDS: D5-1/2NS+20 MEQ KCL - 20 MEQ/1,000 ML INFUS.BAG IV SCH (23:08)
[2017-10-30] MEDS ORDERED: PIPERACILLIN/TAZOBACTAM 3.375 GM VIAL IVPB ONE ×3 (01:04→16:33)
[2017-10-30] MEDS ORDERED: DEXTROSE 5%-WATER - 50 ML IVPB ONE ×3 (01:05→16:33)
[2017-10-30] MEDS: PIPERACILLIN/TAZOB 3.375 GM 3.375 GM in DEXTROSE 5%-WATER - 50 ML IVPB SCH ×3 (01:19→17:02)
[2017-10-30] MEDS: HEPARIN NA (PORCINE) 5,000 UNITS/ML 1ML VIAL SQ SCH ×3 (01:20→17:01)
[2017-10-30 08:08] LABS: BASO % 0.2 % (0-2.0); EOS % 0.7 % (0-4.5); HEMATOCRIT 35.8 % (35.4-49); HEMOGLOBIN 12.1 GM/dL (11.7-16.9); LYMPH % 22.3 % (8-40); MCH 31.6 pg (25.7-33.7); MCHC 33.8 g/dl (32.0-35.9); MEAN CELL VOLUME 93.3 fl (80-96); MEAN PLT VOLUME 10.7 fl (7.5-11.1); MONO % 11.1 % (3.8-10.2); NEUT % 65.7 % (42.8-82.8); PLATELET COUNT 113 K/MM3 (134-434); RBC 3.83 M/mm3 (4.00-5.60); RDW 14.8 % (11.9-15.9); WHITE BLOOD COUNT 7.7 K/mm3 (4.0-10.0)
[2017-10-30 08:43] LABS: ALBUMIN 2.7 g/dl (3.4-5.0); ALK PHOS 66 U/L (45-117); ANION GAP 6 (8-16); BLOOD UREA NITROGEN 13 mg/dL (7-18); CALCIUM 8.1 mg/dL (8.5-10.1); CHLORIDE 105 mmol/L (98-107); CO2 28 mmol/L (21-32); CREATININE 0.9 mg/dL (0.7-1.3); GLUCOSE,RANDOM 96 mg/dL (74-106); POTASSIUM 3.7 mmol/L (3.5-5.1); SGOT/AST 15 U/L (15-37); SGPT/ALT 16 U/L (12-78); SODIUM 139 mmol/L (136-145); TOT PROT 6.3 g/dl (6.4-8.2)
--- NOTE | 2017-10-30 09:35 | PN ---
Progress Note, Physician Chief Complaint: Abdominal pain Choleycystitis History of Present Illness: NAD Abdominal Pain on palpation - Current Medication List Current Medications: Active Medications Acetaminophen (Tylenol -) 650 mg PO Q6H PRN PRN Reason: PAIN Amlodipine Besylate (Norvasc -) 5 mg PO DAILY [facility] Atorvastatin Calcium (Lipitor -) 20 mg PO HS [facility] Last Admin: 10/29/17 22:56 Dose: 20 mg Carvedilol (Coreg -) 12.5 mg PO DAILY [facility] Furosemide (Lasix -) 20 mg PO DAILY [facility] Heparin Sodium (Porcine) (Heparin -) 5,000 unit SQ Q8H-IV [facility] Last Admin: 10/30/17 01:20 Dose: 5,000 unit Potassium Chloride/Dextrose/Sod Cl (D5-1/2ns+20 Meq Kcl -) 20 meq in 1,000 mls @ 75 mls/hr IV ASDIR [facility] Last Admin: 10/29/17 23:08 Dose: 75 mls/hr Piperacillin Sod/Tazobactam (Sod 3.375 gm/ Dextrose) 50 mls @ 100 mls/hr IVPB Q8H-IV [facility]; Protocol Last Admin: 10/30/17 01:19 Dose: 100 mls/hr Latanoprost (Xalatan 0.005% Eye Drops -) 1 drop OU HS [facility] Last Admin: 10/29/17 22:56 Dose: 1 drop Losartan Potassium (Cozaar -) 100 mg PO DAILY [facility] Morphine Sulfate (Morphine Sulfate) 2 mg IVPUSH Q4H PRN PRN Reason: PAIN LEVEL 6-10 Last Admin: 10/29/17 19:48 Dose: 2 mg Pancrelipase (Creon Dr 36,000 Units Capsule) 2 cap PO BIDWM [facility] Last Admin: 10/29/17 17:33 Dose: 2 cap Tamsulosin HCl (Flomax -) 0.4 mg PO DAILY [facility] - Objective Vital Signs: Vital Signs Temperature 99.2 F 10/30/17 07:18 Pulse Rate 64 10/30/17 07:18 Respiratory Rate 18 10/30/17 07:18 Blood Pressure 108/64 10/30/17 07:18 O2 Sat by Pulse Oximetry (%) 98 10/29/17 21:00 Constitutional: Yes: Well Nourished, No Distress, Calm Cardiovascular: Yes: Regular Rate and Rhythm Respiratory: Yes: Regular Gastrointestinal: Yes: Normal Bowel Sounds, Tenderness (RUQ) Musculoskeletal: Yes: WNL Extremities: Yes: WNL Edema: No Peripheral Pulses WNL: Yes Neurological: Yes: Alert, Oriented Psychiatric: Yes: Alert, Oriented Labs: CBC, BMP 10/30/17 06:15 10/30/17 06:15 INR, PTT INR 1.56 (0.82-1.09) H 10/29/17 05:20 Problem List - Problems (1) Afib Assessment/Plan: -Eliquis on hold -Seen by Cardiology -No need for bridging, benefit=risks as per data Code(s): I48.91 - UNSPECIFIED ATRIAL FIBRILLATION Qualifiers: Atrial fibrillation type: chronic Qualified Code(s): I48.2 - Chronic atrial fibrillation (2) Cholecystitis Assessment/Plan: -Seen by GI and Surgery -Plan for Choleycystectomy on Tuesday -NPO except meds -IVF -Zosyn q8h Code(s): K81.9 - CHOLECYSTITIS, UNSPECIFIED (3) Lactic acidosis Assessment/Plan: -IVF -resolved Code(s): E87.2 - ACIDOSIS (4) Thrombocytopenia Assessment/Plan: -Repeat labs in AM -Hemotology consult Code(s): D69.6 - THROMBOCYTOPENIA, UNSPECIFIED Assessment/Plan See problem list DVT prophylaxis Physical therapy Dispo: home with VNS
--- NOTE | 2017-10-30 10:04 | PN ---
Progress Note, Physician Chief Complaint: abdominal pain History of Present Illness: 82yo male PMH HTN, CAD, PAD, A-fib (on Eliquis), pancreatitis on creon, OA,and RA, who presents to the emergency department with, 2 days of right upper quadrant pain. He reports persistent pain in the abdomen. stable overnight. - Current Medication List Current Medications: Active Medications Acetaminophen (Tylenol -) 650 mg PO Q6H PRN PRN Reason: PAIN Amlodipine Besylate (Norvasc -) 5 mg PO DAILY [facility] Atorvastatin Calcium (Lipitor -) 20 mg PO HS [facility] Last Admin: 10/29/17 22:56 Dose: 20 mg Carvedilol (Coreg -) 12.5 mg PO DAILY [facility] Furosemide (Lasix -) 20 mg PO DAILY [facility] Heparin Sodium (Porcine) (Heparin -) 5,000 unit SQ Q8H-IV [facility] Last Admin: 10/30/17 01:20 Dose: 5,000 unit Potassium Chloride/Dextrose/Sod Cl (D5-1/2ns+20 Meq Kcl -) 20 meq in 1,000 mls @ 75 mls/hr IV ASDIR [facility] Last Admin: 10/29/17 23:08 Dose: 75 mls/hr Piperacillin Sod/Tazobactam (Sod 3.375 gm/ Dextrose) 50 mls @ 100 mls/hr IVPB Q8H-IV [facility]; Protocol Last Admin: 10/30/17 01:19 Dose: 100 mls/hr Latanoprost (Xalatan 0.005% Eye Drops -) 1 drop OU HS [facility] Last Admin: 10/29/17 22:56 Dose: 1 drop Losartan Potassium (Cozaar -) 100 mg PO DAILY [facility] Morphine Sulfate (Morphine Sulfate) 2 mg IVPUSH Q4H PRN PRN Reason: PAIN LEVEL 6-10 Last Admin: 10/29/17 19:48 Dose: 2 mg Pancrelipase (Creon Dr 36,000 Units Capsule) 2 cap PO BIDWM [facility] Last Admin: 10/29/17 17:33 Dose: 2 cap Tamsulosin HCl (Flomax -) 0.4 mg PO DAILY [facility] - Objective Vital Signs: Vital Signs Temperature 98.0 F 10/30/17 09:55 Pulse Rate 52 L 10/30/17 09:55 Respiratory Rate 18 10/30/17 09:55 Blood Pressure 122/67 10/30/17 09:55 O2 Sat by Pulse Oximetry (%) 98 10/29/17 21:00 Vital Signs Period Temp Pulse Resp BP Sys/Mi Pulse Ox Last 24 Hr 97.3 F-99.6 F 52-68 16-18 94-122/48-67 96-98 Labs: CBC, BMP 10/30/17 06:15 10/30/17 06:15 INR, PTT INR 1.56 (0.82-1.09) H 10/29/17 05:20 Problem List - Problems (1) Calculus gallbladder and bile duct w/acute cholecystitis and obstructn Assessment/Plan: 82yo male MMP including Afib on eloquis presented with early acute cholecystitis, +murphys, low grade fever (Tmax 99.6). Appreciate cardiology evaluation. Plan is to proceed with cholecystetctomy after discussion with the patient and his family. NPO and IVF resuscitation empiric IV antibiotics Trend labs Medical clearance in anticipation of surgery or IR intervention on 10/31/17 Discussed with patient risks, benefits and alternatives of laparoscopic possible open Cholecystectomy, including but not limited to bleeding, infection , injury to adjacent structures, leak or injury, intraabdominal abscess, need for further procedures, ; alternatives include antibiotics, delayed or no surgery - risks of this include failure of nonoperative therapy, perforation, sepsis, recurrence, . Patient desires to proceed with operation - will take to OR for above. Informed consent signed for same. Code(s): K80.63 - CALCULUS OF GB AND BILE DUCT W ACUTE CHOLECYST W OBSTRUCTION (2) Afib Code(s): I48.91 - UNSPECIFIED ATRIAL FIBRILLATION Qualifiers: Atrial fibrillation type: chronic Qualified Code(s): I48.2 - Chronic atrial fibrillation (3) CAD (coronary artery disease) Code(s): I25.10 - ATHSCL HEART DISEASE OF [place] CORONARY ARTERY W/O ANG PCTRS (4) Spinal stenosis Code(s): M48.00 - SPINAL STENOSIS, SITE UNSPECIFIED
[2017-10-30] MEDS: CARVEDILOL 12.5 MG TABLET (FP) PO SCH (10:08)
[2017-10-30] MEDS: LOSARTAN POTASSIUM 50 MG TABLET (FP) PO SCH (10:08)
[2017-10-30] MEDS: LIPASE/PROTEASE/AMYLASE 36,000 UNIT CAPSULE PO SCH ×2 (10:08→17:02)
[2017-10-30] MEDS: TAMSULOSIN HCL 0.4 MG CAP.ER.24H (FP) PO SCH (10:09)
[2017-10-30] MEDS: FUROSEMIDE 20 MG TABLET (FP) PO SCH (10:09)
[2017-10-30] MEDS: amLODIPine BESYLATE 5 MG TABLET (FP) PO SCH (10:09)
--- NOTE | 2017-10-30 10:41 | PN ---
GI Progress Note Subjective: No acute events States pain the same - Objective Vital Signs: Vital Signs Temperature 98.0 F 10/30/17 09:55 Pulse Rate 52 L 10/30/17 09:55 Respiratory Rate 18 10/30/17 09:55 Blood Pressure 122/67 10/30/17 09:55 O2 Sat by Pulse Oximetry (%) 98 10/29/17 21:00 Constitutional: Calm Eyes: No: Sclera Icterus Cardiovascular: Yes: Bradycardia, Pulse Irregular Gastrointestinal Inspection: No: Distention ...Auscultate: Yes: Normoactive Bowel Sounds ...Palpate: No: Tenderness (TTP RUQ) ...Percussion: No: Tympanitic Edema: No (No LE edema) Neurological: Yes: Alert Labs: CBC, BMP 10/30/17 06:15 10/30/17 06:15 INR, PTT INR 1.56 (0.82-1.09) H 10/29/17 05:20 Hepatic Panel Total Bilirubin 1.0 mg/dL (0.2-1.0) 10/30/17 06:15 AST 15 U/L (15-37) 10/30/17 06:15 ALT 16 U/L (12-78) 10/30/17 06:15 Alkaline Phosphatase 66 U/L (45-117) 10/30/17 06:15 Albumin 2.7 g/dl (3.4-5.0) L 10/30/17 06:15 - ....Imaging Cat Scan: Image Reviewed (Preliminary report: changes c/w acute cholecystitis, liver cysts, dilated pancreatic duct) Problem List - Problems (1) Acute calculous cholecystitis Assessment/Plan: Recurrent by history On IV Abx NPO IV Hydration I spoke with his daughter yesterday: described an admission at [facility] in june at which time cholecystectomy was deferred given "A.Fib and blood thinners". Mr. Xiong has paperwork from [facility] from an admission there 08/19. In review it appears as though he was admitted there for cardiac issues. Paperwork described plavix, eliquis, statin therapy as part of his regimen. Surgery and cardiology following and to make decision re: cholecystectomy F/U official CT scan read. Will need follow-up of dilated pancreatic duct, preferably at a hepatobiliary center such as [facility] or [place]. He has a history of ? chronic pancreatitis so unclear if this is a known finding. MRCP can be obtained Code(s): K80.00 - CALCULUS OF GALLBLADDER W ACUTE CHOLECYST W/O OBSTRUCTION
--- NOTE | 2017-10-30 16:05 | PN ---
Progress Note, Physician Chief Complaint: Events noted Await cholecystectomy History of Present Illness: Patient was seen and examined. Awake and alert. Chart was reviewed Denies chest pain, SOB or palpitation (+) abdominal tenderness - Current Medication List Current Medications: Active Medications Acetaminophen (Tylenol -) 650 mg PO Q6H PRN PRN Reason: PAIN Amlodipine Besylate (Norvasc -) 5 mg PO DAILY [facility] Last Admin: 10/30/17 10:09 Dose: 5 mg Atorvastatin Calcium (Lipitor -) 20 mg PO HS [facility] Last Admin: 10/29/17 22:56 Dose: 20 mg Carvedilol (Coreg -) 12.5 mg PO DAILY [facility] Last Admin: 10/30/17 10:08 Dose: 12.5 mg Furosemide (Lasix -) 20 mg PO DAILY [facility] Last Admin: 10/30/17 10:09 Dose: 20 mg Heparin Sodium (Porcine) (Heparin -) 5,000 unit SQ Q8H-IV [facility] Last Admin: 10/30/17 10:09 Dose: 5,000 unit Potassium Chloride/Dextrose/Sod Cl (D5-1/2ns+20 Meq Kcl -) 20 meq in 1,000 mls @ 75 mls/hr IV ASDIR [facility] Last Admin: 10/29/17 23:08 Dose: 75 mls/hr Piperacillin Sod/Tazobactam (Sod 3.375 gm/ Dextrose) 50 mls @ 100 mls/hr IVPB Q8H-IV [facility]; Protocol Last Admin: 10/30/17 10:11 Dose: 100 mls/hr Latanoprost (Xalatan 0.005% Eye Drops -) 1 drop OU HS [facility] Last Admin: 10/29/17 22:56 Dose: 1 drop Losartan Potassium (Cozaar -) 100 mg PO DAILY [facility] Last Admin: 10/30/17 10:08 Dose: 100 mg Morphine Sulfate (Morphine Sulfate) 2 mg IVPUSH Q4H PRN PRN Reason: PAIN LEVEL 6-10 Last Admin: 10/29/17 19:48 Dose: 2 mg Pancrelipase (Creon Dr 36,000 Units Capsule) 2 cap PO BIDWM [facility] Last Admin: 10/30/17 10:08 Dose: 2 cap Tamsulosin HCl (Flomax -) 0.4 mg PO DAILY [facility] Last Admin: 10/30/17 10:09 Dose: 0.4 mg - Objective Vital Signs: Vital Signs Temperature 98.0 F 10/30/17 09:55 Pulse Rate 52 L 10/30/17 09:55 Respiratory Rate 18 10/30/17 09:55 Blood Pressure 122/67 10/30/17 09:55 O2 Sat by Pulse Oximetry (%) 98 10/29/17 21:00 Eyes: Yes: PERRL HENT: Yes: Atraumatic Neck: Yes: Supple Cardiovascular: Yes: Regular Rate and Rhythm Respiratory: Yes: CTA Bilaterally Gastrointestinal: Yes: Normal Bowel Sounds, Tenderness Edema: No Labs: CBC, BMP 10/30/17 06:15 10/30/17 06:15 INR, PTT INR 1.56 (0.82-1.09) H 10/29/17 05:20 Problem List - Problems (1) Acute calculous cholecystitis Code(s): K80.00 - CALCULUS OF GALLBLADDER W ACUTE CHOLECYST W/O OBSTRUCTION (2) Afib Code(s): I48.91 - UNSPECIFIED ATRIAL FIBRILLATION Qualifiers: Atrial fibrillation type: chronic Qualified Code(s): I48.2 - Chronic atrial fibrillation (3) CAD (coronary artery disease) Code(s): I25.10 - ATHSCL HEART DISEASE OF [place] CORONARY ARTERY W/O ANG PCTRS Qualifiers: Coronary Disease-Associated Artery/Lesion type: [place] artery [place] vs. transplanted heart: [place] heart Associated angina: without angina Qualified Code(s): I25.10 - Atherosclerotic heart disease of [place] coronary artery without angina pectoris (4) Cholecystitis Code(s): K81.9 - CHOLECYSTITIS, UNSPECIFIED (5) Diastolic dysfunction without heart failure Code(s): I51.89 - OTHER ILL-DEFINED HEART DISEASES (6) Hyperlipidemia Code(s): E78.5 - HYPERLIPIDEMIA, UNSPECIFIED Qualifiers: Hyperlipidemia type: pure hypercholesterolemia Qualified Code(s): E78.00 - Pure hypercholesterolemia, unspecified; E78.0 - Pure hypercholesterolemia (7) Hypertensive cardiomyopathy Code(s): I11.9 - HYPERTENSIVE HEART DISEASE WITHOUT HEART FAILURE; I43 - CARDIOMYOPATHY IN DISEASES CLASSIFIED ELSEWHERE Qualifiers: Heart failure presence: without heart failure Qualified Code(s): I11.9 - Hypertensive heart disease without heart failure; I43 - Cardiomyopathy in diseases classified elsewhere (8) Left bundle branch block (LBBB) Code(s): I44.7 - LEFT BUNDLE-BRANCH BLOCK, UNSPECIFIED (9) Pre-operative cardiovascular examination Code(s): Z01.810 - ENCOUNTER FOR PREPROCEDURAL CARDIOVASCULAR EXAMINATION Assessment/Plan 1. Pre-operative cardiovascular evaluation prior to laparoscopic cholecystectomy 2. Acute cholecystitis with gallbladder calculus 3. Persistent AF on NOAC 4. CAD with abnormal MPI 5. HTN/HCVD 6. Hyperlipidemia 7. Spinal stenosis 8. Diastolic dysfunction, euvolemic 9. Complete LBBB PLAN: 1. Hold Eliquis laureen-op 2. No absolute contraindication in proceeding with surgery in view of absence of ischemic symptoms, decompensated congestive heart failure or malignant arrhythmias 3. DVT and GI prophylaxis, analgesia as needed 4. Continue Carvedilol, Amlodipine and Losartan as tolerated. Continue diuretics as needed and statin therapy Further plans are to follow Jeff Ellsworth MD
[2017-10-30] MEDS: D5-1/2NS+20 MEQ KCL - 20 MEQ/1,000 ML INFUS.BAG IV SCH ×2 (17:01)
[2017-10-30] MEDS: MORPHINE SULFATE 2 MG/ML VIAL IVPUSH PRN (21:00)
[2017-10-30] MEDS: ATORVASTATIN CA 20 MG TABLET (FP) PO SCH (21:15)
[2017-10-30] MEDS: LATANOPROST 0.005% OPHTH SOLN 2.5ML BOTTLE OU SCH (21:15)
[2017-10-31] MEDS ORDERED: DEXTROSE 5%-WATER - 50 ML IVPB ONE ×3 (01:15→18:03)
[2017-10-31] MEDS ORDERED: PIPERACILLIN/TAZOBACTAM 3.375 GM VIAL IVPB ONE ×3 (01:15→18:03)
[2017-10-31] MEDS: PIPERACILLIN/TAZOB 3.375 GM 3.375 GM in DEXTROSE 5%-WATER - 50 ML IVPB SCH ×3 (01:25→18:07)
[2017-10-31] MEDS: HEPARIN NA (PORCINE) 5,000 UNITS/ML 1ML VIAL SQ SCH ×3 (01:26→21:17)
[2017-10-31 07:42] LABS: BASO % 0.5 % (0-2.0); EOS % 1.6 % (0-4.5); HEMATOCRIT 35.5 % (35.4-49); HEMOGLOBIN 11.8 GM/dL (11.7-16.9); LYMPH % 24.3 % (8-40); MCH 31.4 pg (25.7-33.7); MCHC 33.2 g/dl (32.0-35.9); MEAN CELL VOLUME 94.8 fl (80-96); MEAN PLT VOLUME 11.1 fl (7.5-11.1); MONO % 12.5 % (3.8-10.2); NEUT % 61.1 % (42.8-82.8); PLATELET COUNT 123 K/MM3 (134-434); RBC 3.74 M/mm3 (4.00-5.60); RDW 14.7 % (11.9-15.9); WHITE BLOOD COUNT 5.7 K/mm3 (4.0-10.0)
[2017-10-31 08:11] LABS: ALBUMIN 2.8 g/dl (3.4-5.0); ANION GAP 7 (8-16); BILIRUBIN,TOTAL 1.1 mg/dL (0.2-1.0); BLOOD UREA NITROGEN 16 mg/dL (7-18); CALCIUM 8.4 mg/dL (8.5-10.1); CHLORIDE 110 mmol/L (98-107); CO2 26 mmol/L (21-32); GLUCOSE,RANDOM 83 mg/dL (74-106); POTASSIUM 4.4 mmol/L (3.5-5.1); SGOT/AST 11 U/L (15-37); SGPT/ALT 13 U/L (12-78); SODIUM 143 mmol/L (136-145); TOT PROT 6.4 g/dl (6.4-8.2)
[2017-10-31 08:12] LABS: ALK PHOS 62 U/L (45-117)
--- NOTE | 2017-10-31 08:27 | PN ---
GI Progress Note Subjective: No acute events States feeling better - Objective Vital Signs: Vital Signs Temperature 98.2 F 10/31/17 07:12 Pulse Rate 90 10/31/17 07:12 Respiratory Rate 20 10/31/17 07:12 Blood Pressure 122/74 10/31/17 07:12 O2 Sat by Pulse Oximetry (%) 98 10/29/17 21:00 Constitutional: Calm Eyes: No: Sclera Icterus Cardiovascular: Yes: Regular Rate and Rhythm Respiratory: Yes: CTA Bilaterally ...Auscultate: Yes: Normoactive Bowel Sounds ...Palpate: Yes: Guarding, Tenderness (Marked TTP RUQ) ...Percussion: No: Tympanitic Edema: No (No LE edema) Labs: CBC, BMP 10/31/17 06:10 10/31/17 06:10 Total Bilirubin 1.1 mg/dL (0.2-1.0) H 10/31/17 06:10 AST 11 U/L (15-37) L D 10/31/17 06:10 ALT 13 U/L (12-78) 10/31/17 06:10 Alkaline Phosphatase 62 U/L (45-117) 10/31/17 06:10 Albumin 2.8 g/dl (3.4-5.0) L 10/31/17 06:10 Problem List - Problems (1) Acute calculous cholecystitis Assessment/Plan: Continued IV Abx NPO IV Hydration Plan for cholecystecomy per surgery Ordered repeat coags for this morning Code(s): K80.00 - CALCULUS OF GALLBLADDER W ACUTE CHOLECYST W/O OBSTRUCTION (2) Thrombocytopenia Assessment/Plan: ? antibiotic induced / alternate etiology w/u per PMD Code(s): D69.6 - THROMBOCYTOPENIA, UNSPECIFIED
[2017-10-31] MEDS ORDERED: PT OWN MED DRAWER 7, Y5N ONE ×2 (08:29→10:34)
[2017-10-31] MEDS: LIPASE/PROTEASE/AMYLASE 36,000 UNIT CAPSULE PO SCH ×2 (08:34→18:07)
--- NOTE | 2017-10-31 09:07 | PN ---
Progress Note, Physician - Current Medication List Current Medications: Active Medications Acetaminophen (Tylenol -) 650 mg PO Q6H PRN PRN Reason: PAIN Amlodipine Besylate (Norvasc -) 5 mg PO DAILY [facility] Last Admin: 10/30/17 10:09 Dose: 5 mg Atorvastatin Calcium (Lipitor -) 20 mg PO HS [facility] Last Admin: 10/30/17 21:15 Dose: 20 mg Carvedilol (Coreg -) 12.5 mg PO DAILY [facility] Last Admin: 10/30/17 10:08 Dose: 12.5 mg Furosemide (Lasix -) 20 mg PO DAILY [facility] Last Admin: 10/30/17 10:09 Dose: 20 mg Heparin Sodium (Porcine) (Heparin -) 5,000 unit SQ Q8H-IV [facility] Last Admin: 10/31/17 01:26 Dose: Not Given Potassium Chloride/Dextrose/Sod Cl (D5-1/2ns+20 Meq Kcl -) 20 meq in 1,000 mls @ 75 mls/hr IV ASDIR [facility] Last Admin: 10/30/17 17:01 Dose: 75 mls/hr Piperacillin Sod/Tazobactam (Sod 3.375 gm/ Dextrose) 50 mls @ 100 mls/hr IVPB Q8H-IV [facility]; Protocol Last Admin: 10/31/17 01:25 Dose: 100 mls/hr Latanoprost (Xalatan 0.005% Eye Drops -) 1 drop OU HS [facility] Last Admin: 10/30/17 21:15 Dose: 1 drop Losartan Potassium (Cozaar -) 100 mg PO DAILY [facility] Last Admin: 10/30/17 10:08 Dose: 100 mg Morphine Sulfate (Morphine Sulfate) 2 mg IVPUSH Q4H PRN PRN Reason: PAIN LEVEL 6-10 Last Admin: 10/30/17 21:00 Dose: 2 mg Pancrelipase (Creon Dr 36,000 Units Capsule) 2 cap PO BIDWM [facility] Last Admin: 10/31/17 08:34 Dose: 2 cap Tamsulosin HCl (Flomax -) 0.4 mg PO DAILY [facility] Last Admin: 10/30/17 10:09 Dose: 0.4 mg - Objective Vital Signs: Vital Signs Temperature 98.2 F 10/31/17 07:12 Pulse Rate 90 10/31/17 07:12 Respiratory Rate 20 10/31/17 07:12 Blood Pressure 122/74 10/31/17 07:12 O2 Sat by Pulse Oximetry (%) 98 10/29/17 21:00 Cardiovascular: Yes: S1, S2 Respiratory: Yes: Regular, CTA Bilaterally Gastrointestinal: Yes: Normal Bowel Sounds, Soft, Tenderness Labs: CBC, BMP 10/31/17 06:10 10/31/17 06:10 INR, PTT INR 1.56 (0.82-1.09) H 10/29/17 05:20 Assessment/Plan - Problems (1) Afib Assessment/Plan: -Eliquis on hold -Seen by Cardiology -No need for bridging, benefit=risks as per data Code(s): I48.91 - UNSPECIFIED ATRIAL FIBRILLATION Qualifiers: Atrial fibrillation type: chronic Qualified Code(s): I48.2 - Chronic atrial fibrillation (2) Cholecystitis Assessment/Plan: -Seen by GI and Surgery -Plan for Choleycystectomy today -NPO except meds -IVF -Zosyn q8h Code(s): K81.9 - CHOLECYSTITIS, UNSPECIFIED (3) Lactic acidosis Assessment/Plan: -IVF -resolved Code(s): E87.2 - ACIDOSIS (4) Thrombocytopenia Assessment/Plan: -Repeat labs --123 -Hemotology consult Code(s): D69.6 - THROMBOCYTOPENIA, UNSPECIFIED Assessment/Plan See problem list DVT prophylaxis Physical therapy Dispo: home with VNS
[2017-10-31 09:56] LABS: INR 1.34 (0.82-1.09); PROTHROMBIN TIME (PATIENT) 15.1 SEC (9.7-13.0)
[2017-10-31] MEDS: CARVEDILOL 12.5 MG TABLET (FP) PO SCH (10:36)
[2017-10-31] MEDS: LOSARTAN POTASSIUM 50 MG TABLET (FP) PO SCH (10:36)
[2017-10-31] MEDS: amLODIPine BESYLATE 5 MG TABLET (FP) PO SCH (10:37)
[2017-10-31] MEDS: FUROSEMIDE 20 MG TABLET (FP) PO SCH (10:37)
[2017-10-31] MEDS: TAMSULOSIN HCL 0.4 MG CAP.ER.24H (FP) PO SCH (10:37)
--- NOTE | 2017-10-31 10:39 | EKG ---
Test Reason : Blood Pressure : / mmHG Vent. Rate : 068 BPM Atrial Rate : 076 BPM P-R Int : 000 ms QRS Dur : 150 ms QT Int : 396 ms P-R-T Axes : 000 -43 054 degrees QTc Int : 421 ms ATRIAL FIBRILLATION LEFT AXIS DEVIATION LEFT BUNDLE BRANCH BLOCK ABNORMAL ECG NO PREVIOUS ECGS AVAILABLE Confirmed by SALVADOR LOCKETT, KARINA ([id number]) on 10/31/2017 10:39:05 AM Referred By: Confirmed By:KARINA FRANCO MD
--- NOTE | 2017-10-31 11:36 | PN ---
Progress Note, Physician Chief Complaint: Events noted Await cholecystectomy today History of Present Illness: Patient was seen and examined. Awake and alert. Chart was reviewed Denies chest pain, SOB or palpitation (+) abdominal tenderness - Current Medication List Current Medications: Active Medications Acetaminophen (Tylenol -) 650 mg PO Q6H PRN PRN Reason: PAIN Amlodipine Besylate (Norvasc -) 5 mg PO DAILY [facility] Last Admin: 10/31/17 10:37 Dose: 5 mg Atorvastatin Calcium (Lipitor -) 20 mg PO HS [facility] Last Admin: 10/30/17 21:15 Dose: 20 mg Carvedilol (Coreg -) 12.5 mg PO DAILY [facility] Last Admin: 10/31/17 10:36 Dose: 12.5 mg Furosemide (Lasix -) 20 mg PO DAILY [facility] Last Admin: 10/31/17 10:37 Dose: 20 mg Heparin Sodium (Porcine) (Heparin -) 5,000 unit SQ Q8H-IV [facility] Last Admin: 10/31/17 10:39 Dose: Not Given Potassium Chloride/Dextrose/Sod Cl (D5-1/2ns+20 Meq Kcl -) 20 meq in 1,000 mls @ 75 mls/hr IV ASDIR [facility] Last Admin: 10/30/17 17:01 Dose: 75 mls/hr Piperacillin Sod/Tazobactam (Sod 3.375 gm/ Dextrose) 50 mls @ 100 mls/hr IVPB Q8H-IV [facility]; Protocol Last Admin: 10/31/17 10:37 Dose: 100 mls/hr Latanoprost (Xalatan 0.005% Eye Drops -) 1 drop OU HS [facility] Last Admin: 10/30/17 21:15 Dose: 1 drop Losartan Potassium (Cozaar -) 100 mg PO DAILY [facility] Last Admin: 10/31/17 10:36 Dose: 100 mg Morphine Sulfate (Morphine Sulfate) 2 mg IVPUSH Q4H PRN PRN Reason: PAIN LEVEL 6-10 Last Admin: 10/30/17 21:00 Dose: 2 mg Pancrelipase (Creon Dr 36,000 Units Capsule) 2 cap PO BIDWM [facility] Last Admin: 10/31/17 08:34 Dose: 2 cap Tamsulosin HCl (Flomax -) 0.4 mg PO DAILY [facility] Last Admin: 10/31/17 10:37 Dose: 0.4 mg - Objective Vital Signs: Vital Signs Temperature 98.2 F 10/31/17 07:12 Pulse Rate 90 10/31/17 07:12 Respiratory Rate 20 10/31/17 07:12 Blood Pressure 122/74 10/31/17 07:12 O2 Sat by Pulse Oximetry (%) 98 10/29/17 21:00 Eyes: Yes: PERRL HENT: Yes: Atraumatic Neck: Yes: Supple Cardiovascular: Yes: Pulse Irregular, Murmur (soft SM), S1, S2 Respiratory: Yes: CTA Bilaterally Gastrointestinal: Yes: Normal Bowel Sounds, Tenderness Edema: No Labs: CBC, BMP 10/31/17 06:10 10/31/17 06:10 INR, PTT INR 1.34 (0.82-1.09) H 10/31/17 08:55 Problem List - Problems (1) Acute calculous cholecystitis Code(s): K80.00 - CALCULUS OF GALLBLADDER W ACUTE CHOLECYST W/O OBSTRUCTION (2) Afib Code(s): I48.91 - UNSPECIFIED ATRIAL FIBRILLATION Qualifiers: Atrial fibrillation type: chronic Qualified Code(s): I48.2 - Chronic atrial fibrillation (3) CAD (coronary artery disease) Code(s): I25.10 - ATHSCL HEART DISEASE OF [place] CORONARY ARTERY W/O ANG PCTRS Qualifiers: Coronary Disease-Associated Artery/Lesion type: [place] artery [place] vs. transplanted heart: [place] heart Associated angina: without angina Qualified Code(s): I25.10 - Atherosclerotic heart disease of [place] coronary artery without angina pectoris (4) Cholecystitis Code(s): K81.9 - CHOLECYSTITIS, UNSPECIFIED (5) Diastolic dysfunction without heart failure Code(s): I51.89 - OTHER ILL-DEFINED HEART DISEASES (6) Hyperlipidemia Code(s): E78.5 - HYPERLIPIDEMIA, UNSPECIFIED Qualifiers: Hyperlipidemia type: pure hypercholesterolemia Qualified Code(s): E78.00 - Pure hypercholesterolemia, unspecified; E78.0 - Pure hypercholesterolemia (7) Hypertensive cardiomyopathy Code(s): I11.9 - HYPERTENSIVE HEART DISEASE WITHOUT HEART FAILURE; I43 - CARDIOMYOPATHY IN DISEASES CLASSIFIED ELSEWHERE Qualifiers: Heart failure presence: without heart failure Qualified Code(s): I11.9 - Hypertensive heart disease without heart failure; I43 - Cardiomyopathy in diseases classified elsewhere (8) Left bundle branch block (LBBB) Code(s): I44.7 - LEFT BUNDLE-BRANCH BLOCK, UNSPECIFIED (9) Pre-operative cardiovascular examination Code(s): Z01.810 - ENCOUNTER FOR PREPROCEDURAL CARDIOVASCULAR EXAMINATION Assessment/Plan 1. Pre-operative cardiovascular evaluation prior to laparoscopic cholecystectomy 2. Acute cholecystitis with gallbladder calculus 3. Persistent AF on NOAC 4. CAD with abnormal MPI 5. HTN/HCVD 6. Hyperlipidemia 7. Spinal stenosis 8. Diastolic dysfunction, euvolemic 9. Complete LBBB PLAN: 1. Hold Eliquis laureen-op then restart after surgery 2. No absolute contraindication in proceeding with surgery in view of absence of ischemic symptoms, decompensated congestive heart failure or malignant arrhythmias 3. DVT and GI prophylaxis, analgesia as needed 4. Continue Carvedilol, Amlodipine and Losartan as tolerated. Continue diuretics as needed and statin therapy Further plans are to follow Jeff Ellsworth MD
[2017-10-31] MEDS ORDERED: BUPIVACAINE HCL/PF 0.5% (5MG/ML) 10 ML VIAL ONE (13:38)
[2017-10-31] MEDS ORDERED: ROCURONIUM BROMIDE 50 MG/5 ML VIAL ONE (14:04)
[2017-10-31] MEDS ORDERED: PROPOFOL 20 ML ONE (14:04)
[2017-10-31] MEDS ORDERED: CEFOXITIN SODIUM 1 GM IVPB ONE (14:12)
[2017-10-31] MEDS ORDERED: cefOXitin SODIUM 1 GM VIAL (RESTRICTED TO ID) IVPB ONE (14:30)
[2017-10-31] MEDS ORDERED: DEXAMETHASONE SOD PHOSPHATE 4 MG/1 ML VIAL ONE (14:42)
[2017-10-31] MEDS ORDERED: BUPIVACAINE HCL/PF (5 MG/ML) 30 ML VIAL IJ ONE (16:00)
[2017-10-31] MEDS ORDERED: GLYCOPYRROLATE 0.2 MG/1 ML VIAL ONE (16:01)
[2017-10-31] MEDS ORDERED: NEOSTIGMINE METHYLSULFATE 0.5 MG/ML - 10 ML MDV ONE (16:01)
[2017-10-31] MEDS ORDERED: ONDANSETRON 4 MG/2 ML VIAL IVPUSH PRN (16:10)
--- NOTE | 2017-10-31 16:26 | OP ---
Operative Note - Note: Operative Date: 10/31/17 Pre-Operative Diagnosis: acute on chronic cholecystitis Operation: Laparoscopic cholecystectomy Findings: chronically adherent colon and omentum. hydrops gallbladder. critical view identified. weck clips on critical structures. all counts correct post operatively. Post-Operative Diagnosis: Same as Pre-op Surgeon: Claudio Watters Lens Edge Grinder Machine: Solitario Loaiza Anesthesiologist/BANKING PIN ADJUSTER: Alejandro Monroe Anesthesia: General, Local (Marcaine 0.5% 20ml) Specimens Removed: gallbladder Estimated Blood Loss (mls): 15 Fluid Volume Replaced (mls): 800
[2017-10-31] MEDS ORDERED: BENZOCAINE/MENTH/CETYLPYRD CL 1 EACH LOZENGE MM PRN ×2 (16:27→16:34)
[2017-10-31] MEDS ORDERED: MORPHINE SULFATE 2 MG/ML VIAL IVPUSH PRN (16:34)
[2017-10-31] MEDS ORDERED: ACETAMINOPHEN 325 MG TABLET (FP) PO PRN (16:34)
[2017-10-31] MEDS: D5-1/2NS+20 MEQ KCL - 20 MEQ/1,000 ML INFUS.BAG IV SCH (16:55)
--- NOTE | 2017-10-31 19:45 | CONSULT ---
Consult - text type - Consultation Consultation Note: 82M admitted for evaluation of RUQ pain since 10/28. He had fevers, his WBC on admission was normal as were LFTs. Abdominal US revealed a gallstone at the neck of the gallbladder and gallbladder wall thickening. It also revealed a 1.7cm hepatic cyst with thickened internal septation. He underwent laparoscopic cholecystectomy this morning. He is doing well. 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) - Smoking History Smoking history: Never smoked - Social History Usual Living Arrangement: With Spouse ADL: Independent Place of : Other ([facility]) - Allergies Allergies/Adverse Reactions: Allergies Allergy/AdvReac Type Severity Reaction Status Date / Time No Known Allergies Allergy Verified 10/12/17 18:58 - Home Medications Home Medications: Ambulatory Orders Amlodipine Besylate 5 mg PO DAILY 10/12/17 Apixaban [Eliquis] 5 mg PO BID 10/12/17 Atorvastatin Ca [Lipitor] 20 mg PO HS 10/12/17 Carvedilol 12.5 mg PO DAILY 10/12/17 Furosemide [Lasix -] 20 mg PO DAILY 10/12/17 Losartan Potassium 100 mg PO DAILY 10/12/17 Naproxen 500 mg PO DAILY 10/12/17 Tamsulosin HCl 0.4 mg PO DAILY 10/12/17 Acetaminophen [Tylenol -] 650 mg PO Q6H PRN 10/29/17 Bimatoprost [Lumigan] 1 drop OU HS 10/29/17 Lipase/Protease/Amylase [Miky Robbins 36,000 Units Capsule] 2 each PO BID 10/29/17 Naproxen/Esomeprazole Mag [Veronicaovcurtis Robbins 500-20 mg Tablet] 1 each PO DAILY 10/29/17 Active Medications Generic Name Dose Route Start Last Admin Trade Name Freq PRN Reason Stop Dose Admin Acetaminophen 650 mg 10/31/17 16:34 Tylenol - PO Q6H PRN PAIN LEVEL 1 - 3 Amino Acids 30 ml 11/01/17 08:00 Prosource No Carb Liquid Pkt PO BID@0800,1730 [facility] Amlodipine Besylate 5 mg 11/01/17 10:00 Norvasc - PO DAILY [facility] Atorvastatin Calcium 20 mg 10/31/17 22:00 10/31/17 21:15 Lipitor - PO 20 mg HS [facility] Administration Benzocaine/Menthol 1 each 10/31/17 16:34 Cepacol Lozenge - MM DAILY PRN SORE THROAT Carvedilol 12.5 mg 11/01/17 10:00 Coreg - PO DAILY [facility] Furosemide 20 mg 11/01/17 10:00 Lasix - PO DAILY [facility] Heparin Sodium (Porcine) 5,000 unit 10/31/17 22:00 11/01/17 05:53 Heparin - SQ 5,000 unit TID [facility] Administration Potassium Chloride/Dextrose/Sod Cl 20 meq in 1,000 mls @ 75 mls/hr 10/31/17 16 :34 11/01/17 05:00 D5-1/2ns+20 Meq Kcl - IV 75 mls/hr ASDIR [facility] Administration Piperacillin Sod/Tazobactam 50 mls @ 100 mls/hr 10/31/17 18:00 11/01/17 02:30 Sod 3.375 gm/ Dextrose IVPB 100 mls/hr Q8H-IV [facility] Administration Protocol Latanoprost 1 drop 10/31/17 22:00 10/31/17 21:19 Xalatan 0.005% Eye Drops - OU 1 drop HS [facility] Administration Losartan Potassium 100 mg 11/01/17 10:00 Cozaar - PO DAILY [facility] Morphine Sulfate 2 mg 10/31/17 16:34 Morphine Sulfate IVPUSH Q4H PRN PAIN LEVEL 6-10 Pancrelipase 2 cap 10/31/17 17:30 10/31/17 18:07 Creon 36,000 Units Capsule PO 2 cap BIDWM [facility] Administration Tamsulosin HCl 0.4 mg 11/01/17 08:30 Flomax - PO DAILY@0830 [facility] Family Disease History - Family Disease History Other Family History: No family history of colorectal cancer Physical Exam-GI Vital Signs: AFVSS Constitutional: Yes: Calm Eyes: No: Sclera Icterus Respiratory: Yes: CTA Bilaterally P/A--laparoscopic incsions. soft. BS-sluggish Edema: No (No LE edema) Neurological: Yes: Alert Labs/Meds reviewed A/P 82 y/o patient with HTN,HLD, Afib, CAD, s/p laparoscopic cholecystectomy today for acute calculous cholecystitits Mild thrombocytopenia --due to infection/cholecystittis On zosyn expect it to improve Last dose of eliquis 10/28 am. To resume per cardiology/surgical teams Not on NSAIDS Follows with Dr. stephenson from [facility] as outpatient Discussed with patients daughters and patient Will monitor CBC
[2017-10-31] MEDS ORDERED: ZOLPIDEM TARTRATE 5 MG TABLET PO ONE ×2 (20:00→22:00)
[2017-10-31] MEDS ORDERED: ATORVASTATIN CA 20 MG TABLET (FP) PO SCH (22:00)
[2017-10-31] MEDS ORDERED: LATANOPROST 0.005% OPHTH SOLN 2.5ML BOTTLE OU SCH (22:00)
[2017-11-01] MEDS ORDERED: PIPERACILLIN/TAZOBACTAM 3.375 GM VIAL IVPB ONE ×2 (00:05→09:39)
[2017-11-01] MEDS ORDERED: DEXTROSE 5%-WATER - 50 ML IVPB ONE ×2 (00:05→09:39)
[2017-11-01] MEDS: PIPERACILLIN/TAZOB 3.375 GM 3.375 GM in DEXTROSE 5%-WATER - 50 ML IVPB SCH ×2 (02:30→09:42)
[2017-11-01] MEDS: D5-1/2NS+20 MEQ KCL - 20 MEQ/1,000 ML INFUS.BAG IV SCH ×3 (03:39→09:42)
[2017-11-01] MEDS: HEPARIN NA (PORCINE) 5,000 UNITS/ML 1ML VIAL SQ SCH (05:53)
[2017-11-01 07:23] LABS: BASO % 0.1 % (0-2.0); HEMATOCRIT 33.6 % (35.4-49); HEMOGLOBIN 11.5 GM/dL (11.7-16.9); LYMPH % 8.6 % (8-40); MCH 31.8 pg (25.7-33.7); MCHC 34.1 g/dl (32.0-35.9); MEAN CELL VOLUME 93.1 fl (80-96); NEUT % 84.3 % (42.8-82.8); PLATELET COUNT 141 K/MM3 (134-434); RBC 3.61 M/mm3 (4.00-5.60); RDW 14.1 % (11.9-15.9); WHITE BLOOD COUNT 8.2 K/mm3 (4.0-10.0)
[2017-11-01] MEDS ORDERED: AMINO ACIDS/PROTEIN HYDROLYS 30 ML LIQUID.PKT PO SCH (08:00)
[2017-11-01 08:08] LABS: CHLORIDE 108 mmol/L (98-107); POTASSIUM 4.1 mmol/L (3.5-5.1); SODIUM 143 mmol/L (136-145)
--- NOTE | 2017-11-01 08:19 | PN ---
Progress Note, Physician Chief Complaint: patient resting comfortably, no complaints. No anesthetic issues postop - Current Medication List Current Medications: Active Medications Acetaminophen (Tylenol -) 650 mg PO Q6H PRN PRN Reason: PAIN LEVEL 1 - 3 Amino Acids (Prosource No Carb Liquid Pkt) 30 ml PO BID@0800,1730 [facility] Amlodipine Besylate (Norvasc -) 5 mg PO DAILY [facility] Atorvastatin Calcium (Lipitor -) 20 mg PO HS [facility] Last Admin: 10/31/17 21:15 Dose: 20 mg Benzocaine/Menthol (Cepacol Lozenge -) 1 each MM DAILY PRN PRN Reason: SORE THROAT Carvedilol (Coreg -) 12.5 mg PO DAILY [facility] Furosemide (Lasix -) 20 mg PO DAILY [facility] Heparin Sodium (Porcine) (Heparin -) 5,000 unit SQ TID [facility] Last Admin: 11/01/17 05:53 Dose: 5,000 unit Potassium Chloride/Dextrose/Sod Cl (D5-1/2ns+20 Meq Kcl -) 20 meq in 1,000 mls @ 75 mls/hr IV ASDIR [facility] Last Admin: 11/01/17 05:00 Dose: 75 mls/hr Piperacillin Sod/Tazobactam (Sod 3.375 gm/ Dextrose) 50 mls @ 100 mls/hr IVPB Q8H-IV [facility]; Protocol Last Admin: 11/01/17 02:30 Dose: 100 mls/hr Latanoprost (Xalatan 0.005% Eye Drops -) 1 drop OU [facility] Last Admin: 10/31/17 21:19 Dose: 1 drop Losartan Potassium (Cozaar -) 100 mg PO DAILY [facility] Morphine Sulfate (Morphine Sulfate) 2 mg IVPUSH Q4H PRN PRN Reason: PAIN LEVEL 6-10 Pancrelipase (Creon Dr 36,000 Units Capsule) 2 cap PO BIDWM [facility] Last Admin: 10/31/17 18:07 Dose: 2 cap Tamsulosin HCl (Flomax -) 0.4 mg PO DAILY@0830 [facility] - Objective Vital Signs: Vital Signs Temperature 97.4 F L 11/01/17 06:54 Pulse Rate 78 11/01/17 06:54 Respiratory Rate 20 11/01/17 06:54 Blood Pressure 128/72 11/01/17 06:54 O2 Sat by Pulse Oximetry (%) 96 07/30/18 21:00 Labs: CBC, BMP 11/01/17 06:30 11/01/17 06:30 INR, PTT INR 1.34 (0.82-1.09) H 10/31/17 08:55
[2017-11-01 08:27] LABS: ALBUMIN 2.5 g/dl (3.4-5.0); ALK PHOS 57 U/L (45-117); ANION GAP 10 (8-16); BILIRUBIN,TOTAL 0.6 mg/dL (0.2-1.0); BLOOD UREA NITROGEN 10 mg/dL (7-18); CALCIUM 8.2 mg/dL (8.5-10.1); CO2 25 mmol/L (21-32); CREATININE 0.8 mg/dL (0.7-1.3); GLUCOSE,RANDOM 183 mg/dL (74-106); SGOT/AST 22 U/L (15-37); SGPT/ALT 22 U/L (12-78); TOT PROT 6.3 g/dl (6.4-8.2)
[2017-11-01] MEDS ORDERED: TAMSULOSIN HCL 0.4 MG CAP.ER.24H (FP) PO SCH (08:30)
[2017-11-01] MEDS ORDERED: PT OWN MED DRAWER 7, Y5N ONE ×2 (08:31→08:48)
[2017-11-01] MEDS: LIPASE/PROTEASE/AMYLASE 36,000 UNIT CAPSULE PO SCH (08:32)
[2017-11-01 09:36] VITALS: BP 108/60; PULSE 60; TEMP 98
--- NOTE | 2017-11-01 09:48 | PN ---
Progress Note, Physician Chief Complaint: abdominal pain History of Present Illness: 82yo male PMH HTN, CAD, PAD, A-fib (on Eliquis), pancreatitis on creon, OA,and RA, who presents to the emergency department with, 2 days of right upper quadrant pain. He reports persistent pain in the abdomen. stable overnight. - Current Medication List Current Medications: Active Medications Acetaminophen (Tylenol -) 650 mg PO Q6H PRN PRN Reason: PAIN LEVEL 1 - 3 Amino Acids (Prosource No Carb Liquid Pkt) 30 ml PO BID@0800,1730 [facility] Last Admin: 11/01/17 08:32 Dose: 30 ml Amlodipine Besylate (Norvasc -) 5 mg PO DAILY [facility] Last Admin: 11/01/17 09:42 Dose: 5 mg Atorvastatin Calcium (Lipitor -) 20 mg PO HS [facility] Last Admin: 10/31/17 21:15 Dose: 20 mg Benzocaine/Menthol (Cepacol Lozenge -) 1 each MM DAILY PRN PRN Reason: SORE THROAT Carvedilol (Coreg -) 12.5 mg PO DAILY [facility] Last Admin: 11/01/17 09:42 Dose: 12.5 mg Furosemide (Lasix -) 20 mg PO DAILY [facility] Last Admin: 11/01/17 09:42 Dose: 20 mg Heparin Sodium (Porcine) (Heparin -) 5,000 unit SQ TID [facility] Last Admin: 11/01/17 05:53 Dose: 5,000 unit Potassium Chloride/Dextrose/Sod Cl (D5-1/2ns+20 Meq Kcl -) 20 meq in 1,000 mls @ 75 mls/hr IV ASDIR [facility] Last Admin: 11/01/17 05:00 Dose: 75 mls/hr Piperacillin Sod/Tazobactam (Sod 3.375 gm/ Dextrose) 50 mls @ 100 mls/hr IVPB Q8H-IV [facility]; Protocol Last Admin: 11/01/17 09:42 Dose: 100 mls/hr Latanoprost (Xalatan 0.005% Eye Drops -) 1 drop OU HS [facility] Last Admin: 10/31/17 21:19 Dose: 1 drop Losartan Potassium (Cozaar -) 100 mg PO DAILY [facility] Last Admin: 11/01/17 09:42 Dose: 100 mg Morphine Sulfate (Morphine Sulfate) 2 mg IVPUSH Q4H PRN PRN Reason: PAIN LEVEL 6-10 Pancrelipase (Miky Robbins 36,000 Units Capsule) 2 cap PO BIDWM [facility] Last Admin: 11/01/17 08:32 Dose: 2 cap Tamsulosin HCl (Flomax -) 0.4 mg PO DAILY@0830 [facility] Last Admin: 11/01/17 08:32 Dose: 0.4 mg - Objective Vital Signs: Vital Signs Temperature 98.0 F 11/01/17 09:36 Pulse Rate 60 11/01/17 09:36 Respiratory Rate 18 11/01/17 09:36 Blood Pressure 108/60 11/01/17 09:36 O2 Sat by Pulse Oximetry (%) 96 10/31/17 21:00 Vital Signs Period Temp Pulse Resp BP Sys/Mi Pulse Ox Last 24 Hr 97.4 F-98.0 F 57-98 12-20 108-128/58-76 95-97 Intake & Output 10/31/17 11/01/17 11/01/17 23:59 07:59 15:59 Intake Total 1699 900 Output Total 625 650 Balance 1074 250 Intake: IV 1599 850 D5-1/2NS+20 MEQ KCL - 20 699 850 meq In 1,000 ml @ 75 mls/ hr IV ASDIR [facility] Rx#: [id number] IVPB 100 50 Output: Urine 600 650 Void 600 650 Estimated Blood Loss 25 Other: Voiding Method Urinal Bowel Movement No No Constitutional: Yes: Well Nourished, No Distress, Calm Eyes: Yes: Conjunctiva Clear, EOM Intact HENT: Yes: Atraumatic, Normocephalic Neck: Yes: Supple, Trachea Midline Cardiovascular: Yes: Regular Rate and Rhythm, S1, S2 Respiratory: Yes: Regular, CTA Bilaterally Gastrointestinal: Yes: Normal Bowel Sounds, Soft, Tenderness (incsional) ...Rectal Exam: Yes: Deferred Genitourinary: No: CVA Tenderness - Left, CVA Tenderness - Right Musculoskeletal: No: Muscle Pain, Muscle Weakness Extremities: No: Cool, Cyanosis Edema: No Peripheral Pulses WNL: Yes Peripheral Pulses: Left Radial: 2+, Right Radial: 2+, Left Doralis Pedis: 2+, Right Dorsalis Pedis: 2+ Integumentary: No: Jaundice Wound/Incision: Yes: Clean/Dry, Well Approximated, Dressing Dry and Intact Neurological: Yes: Alert, Oriented Psychiatric: Yes: Alert, Oriented Labs: CBC, BMP 11/01/17 06:30 11/01/17 06:30 INR, PTT INR 1.34 (0.82-1.09) H 10/31/17 08:55 Problem List - Problems (1) Calculus gallbladder and bile duct w/acute cholecystitis and obstructn Assessment/Plan: 82yo male MMP including Afib on eloquis presented with early acute cholecystitis, +murphys, low grade fever. POD#1 s/p Lap Cholecystectomy, tolerating diet, afebrile, voiding. Resume anticoagulation for Afib. Diet as tolerated OOB and ambulate encourage incentive spirometry Discharge planning Code(s): K80.63 - CALCULUS OF GB AND BILE DUCT W ACUTE CHOLECYST W OBSTRUCTION (2) Afib Code(s): I48.91 - UNSPECIFIED ATRIAL FIBRILLATION Qualifiers: Atrial fibrillation type: chronic Qualified Code(s): I48.2 - Chronic atrial fibrillation (3) CAD (coronary artery disease) Code(s): I25.10 - ATHSCL HEART DISEASE OF [place] CORONARY ARTERY W/O ANG PCTRS Qualifiers: Coronary Disease-Associated Artery/Lesion type: [place] artery [place] vs. transplanted heart: [place] heart Associated angina: without angina Qualified Code(s): I25.10 - Atherosclerotic heart disease of [place] coronary artery without angina pectoris (4) Spinal stenosis Code(s): M48.00 - SPINAL STENOSIS, SITE UNSPECIFIED
[2017-11-01] MEDS ORDERED: LOSARTAN POTASSIUM 50 MG TABLET (FP) PO SCH (10:00)
[2017-11-01] MEDS ORDERED: FUROSEMIDE 20 MG TABLET (FP) PO SCH (10:00)
[2017-11-01] MEDS ORDERED: CARVEDILOL 12.5 MG TABLET (FP) PO SCH (10:00)
[2017-11-01] MEDS ORDERED: amLODIPine BESYLATE 5 MG TABLET (FP) PO SCH (10:00)
--- NOTE | 2017-11-01 10:28 | DS ---
Physical Examination Vital Signs: Vital Signs Temperature 98.0 F 11/01/17 09:36 Pulse Rate 60 11/01/17 09:36 Respiratory Rate 18 11/01/17 09:36 Blood Pressure 108/60 11/01/17 09:36 O2 Sat by Pulse Oximetry (%) 96 10/31/17 21:00 Findings/Remarks: The patient is a 82 year old male, with a significant past medical history of HTN, CAD, PAD, A-fib (on Eliquis), pancreatitis on creon, OA,and RA, who presents to the emergency department with, 2 days of right upper quadrant pain. As per patient, his symptoms onset yesterday and is described as constant radiating to his right shoulder. He reports nausea with one episode of emesis. He denies any recent fevers, chills, headache or dizziness. He denies any recent diarrhea or constipation. He denies any recent chest pain or shortness of breath. He denies any recent dysuria, frequency, urgency or hematuria. Patient was at [facility] June for same reason, but no surgery was done due to improvement in his symptoms. There was no cardiac contraindication at that time. Constitutional: Yes: Well Nourished, No Distress, Calm Cardiovascular: Yes: Regular Rate and Rhythm Respiratory: Yes: Regular Gastrointestinal: Yes: Normal Bowel Sounds, Soft, Tenderness (incisional) Musculoskeletal: Yes: WNL Extremities: Yes: WNL Edema: No Peripheral Pulses WNL: Yes Wound/Incision: Yes: Dressing Dry and Intact Neurological: Yes: Alert, Oriented Psychiatric: Yes: Alert, Oriented Labs: CBC, BMP 11/01/17 06:30 11/01/17 06:30 Discharge Summary Reason For Visit: CHOLECYSTITIS Current Active Problems Acute calculous cholecystitis (Acute) Afib (Acute) CAD (coronary artery disease) (Acute) Calculus gallbladder and bile duct w/acute cholecystitis and obstructn (Acute) Cholecystitis (Acute) Diastolic dysfunction without heart failure (Acute) Hyperlipidemia (Acute) Hypertensive cardiomyopathy (Acute) Lactic acidosis (Acute) Left bundle branch block (LBBB) (Acute) Pre-operative cardiovascular examination (Acute) Thrombocytopenia (Acute) Condition: Stable - Instructions Referrals: Claudio Watters MD [Staff Physician] - Disposition: HOME - Home Medications Comprehensive Discharge Medication List: Ambulatory Orders Amlodipine Besylate 5 mg PO DAILY 10/12/17 Apixaban [Eliquis] 5 mg PO BID 10/12/17 Atorvastatin Ca [Lipitor] 20 mg PO HS 10/12/17 Carvedilol 12.5 mg PO DAILY 10/12/17 Furosemide [Lasix -] 20 mg PO DAILY 10/12/17 Losartan Potassium 100 mg PO DAILY 10/12/17 Naproxen 500 mg PO DAILY 10/12/17 Tamsulosin HCl 0.4 mg PO DAILY 10/12/17 Acetaminophen [Tylenol -] 650 mg PO Q6H PRN 10/29/17 Bimatoprost [Lumigan] 1 drop OU HS 10/29/17 Lipase/Protease/Amylase [Miky Robbins 36,000 Units Capsule] 2 each PO BID 10/29/17 Naproxen/Esomeprazole Mag [Eber Robbins 500-20 mg Tablet] 1 each PO DAILY 10/29/17
--- NOTE | 2017-11-01 10:40 | PN ---
Progress Note, Physician Chief Complaint: Events noted POD #1 laparoscopic cholecystectomy Hemodynamically stable History of Present Illness: Patient was seen and examined. Awake and alert. Chart was reviewed Denies chest pain, SOB or palpitation Post op - Current Medication List Current Medications: Active Medications Acetaminophen (Tylenol -) 650 mg PO Q6H PRN PRN Reason: PAIN LEVEL 1 - 3 Amino Acids (Prosource No Carb Liquid Pkt) 30 ml PO BID@0800,1730 [facility] Last Admin: 11/01/17 08:32 Dose: 30 ml Amlodipine Besylate (Norvasc -) 5 mg PO DAILY [facility] Last Admin: 11/01/17 09:42 Dose: 5 mg Atorvastatin Calcium (Lipitor -) 20 mg PO HS [facility] Last Admin: 10/31/17 21:15 Dose: 20 mg Benzocaine/Menthol (Cepacol Lozenge -) 1 each MM DAILY PRN PRN Reason: SORE THROAT Carvedilol (Coreg -) 12.5 mg PO DAILY [facility] Last Admin: 11/01/17 09:42 Dose: 12.5 mg Furosemide (Lasix -) 20 mg PO DAILY [facility] Last Admin: 11/01/17 09:42 Dose: 20 mg Heparin Sodium (Porcine) (Heparin -) 5,000 unit SQ TID [facility] Last Admin: 11/01/17 05:53 Dose: 5,000 unit Potassium Chloride/Dextrose/Sod Cl (D5-1/2ns+20 Meq Kcl -) 20 meq in 1,000 mls @ 75 mls/hr IV ASDIR [facility] Last Admin: 11/01/17 05:00 Dose: 75 mls/hr Piperacillin Sod/Tazobactam (Sod 3.375 gm/ Dextrose) 50 mls @ 100 mls/hr IVPB Q8H-IV GWEN; Protocol Last Admin: 11/01/17 09:42 Dose: 100 mls/hr Latanoprost (Xalatan 0.005% Eye Drops -) 1 drop OU HS [facility] Last Admin: 10/31/17 21:19 Dose: 1 drop Losartan Potassium (Cozaar -) 100 mg PO DAILY [facility] Last Admin: 11/01/17 09:42 Dose: 100 mg Morphine Sulfate (Morphine Sulfate) 2 mg IVPUSH Q4H PRN PRN Reason: PAIN LEVEL 6-10 Pancrelipase (Creon Dr 36,000 Units Capsule) 2 cap PO BIDWM [facility] Last Admin: 11/01/17 08:32 Dose: 2 cap Tamsulosin HCl (Flomax -) 0.4 mg PO DAILY@0830 [facility] Last Admin: 11/01/17 08:32 Dose: 0.4 mg - Objective Vital Signs: Vital Signs Temperature 98.0 F 11/01/17 09:36 Pulse Rate 60 11/01/17 09:36 Respiratory Rate 18 11/01/17 09:36 Blood Pressure 108/60 11/01/17 09:36 O2 Sat by Pulse Oximetry (%) 96 10/31/17 21:00 Eyes: Yes: PERRL HENT: Yes: Atraumatic Neck: Yes: Supple Cardiovascular: Yes: Pulse Irregular, S1, S2 Respiratory: Yes: CTA Bilaterally Gastrointestinal: Yes: Other (Post op) Edema: No Labs: CBC, BMP 11/01/17 06:30 11/01/17 06:30 INR, PTT INR 1.34 (0.82-1.09) H 10/31/17 08:55 Problem List - Problems (1) Acute calculous cholecystitis Code(s): K80.00 - CALCULUS OF GALLBLADDER W ACUTE CHOLECYST W/O OBSTRUCTION (2) Afib Code(s): I48.91 - UNSPECIFIED ATRIAL FIBRILLATION Qualifiers: Atrial fibrillation type: chronic Qualified Code(s): I48.2 - Chronic atrial fibrillation (3) CAD (coronary artery disease) Code(s): I25.10 - ATHSCL HEART DISEASE OF [place] CORONARY ARTERY W/O ANG PCTRS Qualifiers: Coronary Disease-Associated Artery/Lesion type: [place] artery [place] vs. transplanted heart: [place] heart Associated angina: without angina Qualified Code(s): I25.10 - Atherosclerotic heart disease of [place] coronary artery without angina pectoris (4) Cholecystitis Code(s): K81.9 - CHOLECYSTITIS, UNSPECIFIED (5) Diastolic dysfunction without heart failure Code(s): I51.89 - OTHER ILL-DEFINED HEART DISEASES (6) Hyperlipidemia Code(s): E78.5 - HYPERLIPIDEMIA, UNSPECIFIED Qualifiers: Hyperlipidemia type: pure hypercholesterolemia Qualified Code(s): E78.00 - Pure hypercholesterolemia, unspecified; E78.0 - Pure hypercholesterolemia (7) Hypertensive cardiomyopathy Code(s): I11.9 - HYPERTENSIVE HEART DISEASE WITHOUT HEART FAILURE; I43 - CARDIOMYOPATHY IN DISEASES CLASSIFIED ELSEWHERE Qualifiers: Heart failure presence: without heart failure Qualified Code(s): I11.9 - Hypertensive heart disease without heart failure; I43 - Cardiomyopathy in diseases classified elsewhere (8) Left bundle branch block (LBBB) Code(s): I44.7 - LEFT BUNDLE-BRANCH BLOCK, UNSPECIFIED (9) Pre-operative cardiovascular examination Code(s): Z01.810 - ENCOUNTER FOR PREPROCEDURAL CARDIOVASCULAR EXAMINATION Assessment/Plan 1. Post laparoscopic cholecystectomy 2. Acute cholecystitis with gallbladder calculus 3. Persistent AF on NOAC 4. CAD with abnormal MPI 5. HTN/HCVD 6. Hyperlipidemia 7. Spinal stenosis 8. Diastolic dysfunction, euvolemic 9. Complete LBBB PLAN: 1. Resume Eliquis 5 mg BID 2. Continue Carvedilol, Amlodipine and Losartan as tolerated. Continue diuretics as needed and statin therapy 3. DVT and GI prophylaxis, analgesia as needed 4. Surgery input noted Further plans are to follow Jeff Ellsworth MD
--- NOTE | 2017-11-01 11:34 | OP ---
DATE OF OPERATION: 10/31/2017 PREOPERATIVE DIAGNOSIS: Acute on chronic cholecystitis. POSTOPERATIVE DIAGNOSIS: Acute on chronic cholecystitis. PROCEDURE: Laparoscopic cholecystectomy. ATTENDING SURGEON: Claudio Watters MD MANAGER ECONOMIC: Solitario Loaiza MD ANESTHESIOLOGIST: Alejandro Monroe DO ANESTHESIA: General with local. Local consisted of 0.5% Marcaine. A total of 20 mL given in an area about the fascia at the port site. ESTIMATED BLOOD LOSS: 15 mL INTRAVENOU FLUIDS ADMINISTERED: 800 mL SPECIMEN SENT FOR PATHOLOGIC DIAGNOSIS: Gallbladder with stones. BRIEF FINDINGS: Chronically adherent colon and omentum with a hydrops gallbladder. Critical view identified Weck clips on the critical structures. All counts correct postoperatively. INDICATIONS: Patient is an 82-year-old male with atrial fibrillation. He was counseled regarding risks, benefits and alternatives for management of his chronic cholecystitis. He was seen at multiple institutions and decided to delay surgery in lieu of his cardiac risk. He was assessed by our chalk tester to have adequate and moderate risk for intervention. He was counseled regarding risks, benefits and alternatives with all facts. His daughter was also present, as was his . These things were explained to him in his [place] and [place] language. He was explained the risks, benefits and alternatives to surgical approach, signed informed consent and was taken for the procedure. PROCEDURE: Patient was brought to the operating room and was placed in the supine position on the operating table with the right arm tucked and the left arm at 90 degrees perpendicular to the body's midline axis. The lower extremities had SCDs placed compression stockings. Patient had intravenous antibiotics prior to the start of surgery. He was induced with general anesthesia endotracheally intubated without incident. At this point, we proceeded then with placement of a Bridgette Hugger, shaved, prepped and draped the anterior abdominal wall. A formal timeout was completed identifying the operative procedure and site. With all parties in agreement, we then proceeded with an infraumbilical approach on the midline axis. The incision was made with the 15 blade scalpel, deepened and widened through the subcutaneous tissues. Care was taken to identify the midline fascia and elevate it. It was scored with Bovie cautery to the preperitoneal fat and then blunt entry was made into the abdomen. It was clear at this point there were adhesions to a previous umbilical hernia repair, which appeared to be primary. No mesh was encountered. We then proceeded with inspection of the right upper quadrant and the liver. At the liver margin there was adherent colon, as well as omentum. These were taken down atraumatically with a combination of blunt dissection and scoring. We were able to identify the gallbladder's dome. It was grasped and elevated towards the left shoulder cranially. There was an entry into the gallbladder and there did appear to be drainage of hydrops bile. It was suctioned from the field. We then proceeded with elevation of the gallbladder and dissection of the hepatic flexure away from the structures to facilitate our dissection. We then identified the critical structures. The cystic duct was identified and a plane was developed posterior to it. Once the window was created additionally, the right hepatic was seen with its junction of the cystic artery, was also identified after blunt dissection the hepatic plate. We identified the critical view at which point Weck clips were used to control the structures and they were divided under direct visualization and then the gallbladder was elevated from the hepatic bed using Bovie cautery. Once complete, we proceeded then with retrieval of the gallbladder from the umbilical port after resighting the camera to the subxiphoid position. It was retrieved with an EndoCatch bag, 10 mm inserted from the Tatiana port. The gallbladder did appear to have large stones, one of which was retrieved after the gallbladder using graspers. We then proceeded with inspection of the site. The colon and omentum appeared to have only stable cracks with no injury. The hepatic plate was also hemostatic and clips remained in place and we proceeded then with irrigation of the site. The patient was leveled and irrigation fluid was suctioned from the abdomen. The patient then had the ports removed under direct visualization. The inferior umbilical Tatiana port was then closed with a [id number] 0 Vicryl. The space was ablated. The remaining 5 mm trocar sites were then closed at the skin with 4-0 Vicryl in a subcuticular fashion, as was the infraumbilical approach. The skin was cleaned. Sterile dressings were placed, including benzoin and Steri-Strips, gauze sponges and Tegaderms. Patient was awoken from general anesthesia having tolerated the procedure well and was to the floor to resume anticoagulation for his atrial fibrillation. MD MIC Mccarthy/[id number]
--- NOTE | 2017-11-02 13:25 | PATH ---
Surgical Pathology Report Patient Name: SHELLY PEÑA Med. Rec. #: [id number] /Age/Gender: 1935 (Age: 82) / M Account: [id number] Location: [facility] MED/SURG Taken: 10/31/2017 Received: 11/01/2017 Reported: 11/02/2017 Physicians: Woodrow Mccarthy M.D. Specimen(s) Received GALLBLADDER Clinical History Cholecystitis/cholelithiasis Final Diagnosis GALLBLADDER, LAPAROSCOPIC CHOLECYSTECTOMY: ACUTE AND CHRONIC CHOLECYSTITIS. Electronically Signed Mariann Dukes M.D. Gross Description Received in formalin, labeled "gallbladder," is a 5 x 3.5 x 1 cm gallbladder. The outer surface is shaggy, focally disrupted, with yellow-nye exudate and focal hemorrhage identified. The lumen contains bile aggregate measuring 2 x 1 cm. No stones are identified. The mucosa is nye and velvety. No mucosal lesions identified. The wall of the gallbladder measures up to 0.4 cm. in thickness. Separately identified in the container is a 2.5 cm. in length portion of cystic duct. Lead Nuclear Medicine Technologist sections are submitted in one cassette. ANAZ/11/01/2017 montez/11/01/2017
== END 2017-11-01 13:37 | disposition home or self-care (01) | DRG 418 ==
LOC: JER 03:33 → JERBED 09:08 → J8W 12:07
PROVIDERS: ADMIT Family Medicine; ATTEND Family Medicine
PROC: 0FT44ZZ Resection of Gallbladder, Percutaneous Endoscopic Approach (ICD-10-PCS; principal; 2017-10-31 13:30)
DX: K80.12 Calculus of gallbladder with acute and chronic cholecystitis without obstruction (principal); I43 Cardiomyopathy in diseases classified elsewhere; E87.2 Acidosis; K82.1 Hydrops of gallbladder; D69.6 Thrombocytopenia, unspecified; I48.2 Chronic atrial fibrillation; I25.10 Atherosclerotic heart disease of native coronary artery without angina pectoris; I11.9 Hypertensive heart disease without heart failure; I44.7 Left bundle-branch block, unspecified; E78.5 Hyperlipidemia, unspecified; Z79.01 Long term (current) use of anticoagulants; I73.9 Peripheral vascular disease, unspecified; M48.00 Spinal stenosis, site unspecified
CPT/HCPCS: 36415; 71045-TC-FY; 74177-TC; 76705-TC; 80053; 82150; 82550; 82553; 83605; 83690; 83735; 84100; 84484; 85025; 85610; 85730; 87040; 88304-TC; 93005; 93010; 94010; 94760; 97116-GP; 97161-GP; 99285-25; J1644; J7030

== ENCOUNTER 2018-02-26 18:48 | Emergency (ER) | payer MEDICARE, OTHER ==
--- NOTE | 2018-02-26 18:53 | PDOC ---
History of Present Illness - General Chief Complaint: Pain, Acute Stated Complaint: ABDOMINAL PAIN Time Seen by Provider: 02/26/18 18:52 - History of Present Illness Initial Comments: 02/26/18 18:53 Mr. Xiong is an 82 yo male w/ pmh of HTN, CAD, PAD, afib on eliquis, pancreatitis, BPH, OA, and RA with recent hospitalization 10/29-11/01 for RUQ pain in setting s/p lap meron who presents for evaluation of left sided inguinal hernia. Patient notes he has known about this for the last month and is typically able to reduce it. Was lifting something today and noted hernia to pop out and was not able to reduce it himself. Currently complaining of 10/10 pain at site. The patient denies chest pain, shortness of breath, headache and dizziness. Denies fever, chills, nausea, vomit, diarrhea and constipation. Denies dysuria, frequency, urgency and hematuria. Past History - Past Medical History Allergies/Adverse Reactions: Allergies Allergy/AdvReac Type Severity Reaction Status Date / Time No Known Allergies Allergy Verified 02/26/18 18:52 Home Medications: Ambulatory Orders Amlodipine Besylate 5 mg PO DAILY 10/12/17 Apixaban [Eliquis] 5 mg PO BID 10/12/17 Furosemide [Lasix -] 20 mg PO DAILY 10/12/17 Bimatoprost [Lumigan] 1 drop OU HS 10/29/17 Bisacodyl 5 mg PO DAILY PRN 02/26/18 Dexlansoprazole [Dexilant] 60 mg PO DAILY 02/26/18 Dextran 70/Hypromellose [Artificial Tears Eye Drops] 15 ml OP QID PRN 02/26/18 Cardiac Disorders: Yes (a-fib) COPD: No GI Disorders: Yes (pancreas, cholelithiasis) HTN: Yes Hypercholesterolemia: Yes Lung CA: Yes (?) - Surgical History Abdominal Surgery: Yes (umbilical hernia repair) Cholecystectomy: (needs sx but has not done it due to Afib) - Immunization History Immunization Up to Date: Yes - Suicide/Smoking/Psychosocial Hx Smoking History: Never smoked Have you smoked in the past 12 months: No Hx Alcohol Use: No Drug/Substance Use Hx: No Substance Use Type: None, Alcohol Hx Substance Use Treatment: No Review of Systems - Review of Systems Comments:: 02/26/18 19:23 GENERAL/CONSTITUTIONAL: No fever or chills. No weakness. HEAD, EYES, EARS, NOSE AND THROAT: No change in vision. No ear pain or discharge. No sore throat. CARDIOVASCULAR: No chest pain or shortness of breath RESPIRATORY: No cough, wheezing, or hemoptysis. GASTROINTESTINAL: No nausea, vomiting, diarrhea or constipation. GENITOURINARY: +Inguinal hernia pain as described. No dysuria, frequency, or change in urination. MUSCULOSKELETAL: No joint or muscle swelling or pain. No neck or back pain. SKIN: No rash NEUROLOGIC: No headache, vertigo, loss of consciousness, or change in strength/ sensation. ENDOCRINE: No increased thirst. No abnormal weight change HEMATOLOGIC/LYMPHATIC: No anemia, easy bleeding, or history of blood clots. ALLERGIC/IMMUNOLOGIC: No hives or skin allergy. *Physical Exam - Physical Exam Comments: 02/26/18 19:23 GENERAL: Awake, alert, and fully oriented, in no acute distress HEAD: No signs of trauma, normocephalic, atraumatic EYES: PERRLA, EOMI, sclera anicteric, conjunctiva clear ENT: Auricles normal inspection, hearing grossly normal, nares patent, oropharynx clear without exudates. Moist mucosa NECK: Normal ROM, supple, no lymphadenopathy, JVD, or masses LUNGS: No distress, speaks full sentences, clear to auscultation bilaterally HEART: Regular rate and rhythm, normal S1 and S2, no murmurs, rubs or gallops, peripheral pulses normal and equal bilaterally. ABDOMEN: Soft, nontender, normoactive bowel sounds. No guarding, no rebound. No masses EXTREMITIES: +Patient TTP in left inguinal area. Normal inspection, Normal range of motion, no edema. No clubbing or cyanosis. NEUROLOGICAL: Cranial nerves II through XII grossly intact. Normal speech, normal gait, no focal sensorimotor deficits SKIN: Warm, Dry, normal turgor, no rashes or lesions noted. : +Testicles non-tender, penis normal. No rashes, lesions, or masses. ED Treatment Course - LABORATORY CBC & Chemistry Diagram: 02/26/18 20:01 02/26/18 20:01 Medical Decision Making - Medical Decision Making 02/26/18 23:24 Mr. Xiong is an 82 yo male w/ pmh as described who presents for evaluation of symptoms c/w direct inguinal wall hernia. CT abdomen/pelvis ordered for further evaluation. CT read impression negative for acute findings as below: No evidence of a left inguinal hernia. Cardiomegaly with coronary artery arteriosclerosis and calcification of the aortic valve and a small amount of nondependent most likely introduced air bubbles in the right atrium incompletely included within the [id number]. Small hiatal hernia with mild nonspecific lower esophageal wall thickening most likely due to mild reflux esophagitis. Appendix is not identified. If there is a clinical concern for acute appendicitis then follow-up evaluation with a CT Scan Of The Abdomen And Pelvis With Oral Contrast may be needed. Constipation with diverticulosis without diverticulitis. Status post cholecystectomy with mild common bile duct dilation. Small amount of nonspecific dependent pelvic fluid may be due to infection. Mild nonspecific bilateral basilar reticulonodular infiltrates are most likely due to scarring atelectasis and mild superimposed chronic atypical pneumonia. Nodular nonspecific prostatomegaly. If clinically indicated recommend correlation with a PSA level. Patient currently resting comfortably. Discussed with patient that he will need to follow-up with surgery, GI, and pulmonology for various findings. No acute problems at this time. Discharging to home with follow-up as above. Patient given CT read. *DC/Admit/Observation/Transfer Diagnosis at time of Disposition: Left groin pain - Discharge Dispostion Disposition: HOME - Referrals Referrals: Mariann Wayne DO [Staff Physician] - Darnell Ortiz MD, MD [Staff Physician] - Claudio Watters MD [Staff Physician] - - Patient Instructions Printed Discharge Instructions: DI for Groin Strain Additional Instructions: Mik was evaluated today in the ER for his groin pain. No evidence of hernia was found on CT scan. Mild bilateral basilar infiltrate was found for which he should follow-up with pulmonology using provided information. Follow-up with General Surgery for possible hernias as well as Gastroenterology for noted diverticulosis. Return to ER if any exacerbation of pain, fever, chills, difficulty urinating, or other concerning symptoms. - Post Discharge Activity
[2018-02-26 18:58] VITALS: BP 132/74; PULSE 78; TEMP 97.9; BMI 30.7
--- NOTE | 2018-02-26 19:34 | PDOC ---
Attending Attestation - HPI HPI: 02/26/18 20:48 The patient is an 82-year-old male with past medical history significant for HTN , CAD, PAD, Afib (on Eliquis), pancreatitis, OA, BPH presents to the emergency department with L. inguinal pain. Per daughter who is helping with translation, the patient presents with a 1 month of L. inguinal hernia, with an intermittent protrusion. The patient reports at 3:00 pm today, he was pushing something when he felt pain to the L. inguinal region. The patient reports the pain is 10/10 in severity, that radiates down to the legs. Denies diarrhea, constipation, urinary or bowel incontinence, fever, chills, nausea, vomiting, diarrhea, constipation, dysuria, hematuria. Allergies: NKA Surgical history: laparoscopic cholecystectomy (10/31/2017), Umbilical hernia repair (1995 @ [facility]), R. sided hernia repairs (1974 repaired @ [place] ). Social history: None reported PCP: Igor Gonzalez MD - Physicial Exam PE: 02/26/18 20:48 GENERAL: Awake, alert, and fully oriented, in no acute distress HEAD: No signs of trauma EYES: PERRLA, EOMI, sclera anicteric, conjunctiva clear ENT: Auricles normal inspection, hearing grossly normal, nares patent, oropharynx clear without exudates. Moist mucosa NECK: Normal ROM, supple, no lymphadenopathy, JVD, or masses LUNGS: Breath sounds equal, clear to auscultation bilaterally. No wheezes, and no crackles HEART: Regular rate and rhythm, normal S1 and S2, no murmurs, rubs or gallops ABDOMEN: +At cough, something is felt at the L. inguinal region, no bulging or protrusion. Soft, nontender, normoactive bowel sounds. No guarding, no rebound. No masses EXTREMITIES: Normal range of motion, no edema. No clubbing or cyanosis. No cords, erythema, or tenderness NEUROLOGICAL: Cranial nerves II through XII grossly intact. Normal speech. SKIN: Warm, Dry, normal turgor, no rashes or lesions noted. - Medical Decision Making 02/26/18 20:48 Documentation prepared by Tyra Hall, acting as front office medical assistant for Silvina Hill DO. <Tyra Hall - Last Filed: 02/26/18 20:48> - Resident Resident Name: Patrice Whitfield - ED Attending Attestation I have performed the following: I have examined & evaluated the patient, The case was reviewed & discussed with the resident, I agree w/resident's findings & plan, Exceptions are as noted - Medical Decision Making 02/26/18 19:34 I, Dr. Silvina Hill, DO, attest that this document has been prepared under my direction and personally reviewed by me in its entirety. I further attest, that it accurately reflects all work, treatment, procedures and medical decision -making performed by me. 02/26/18 20:03 a/p: 82yo female with L inguinal hernia - -feeling worse over the last month -today felt something get stuck in the L inguinal region and he couldn't reduce it -no n/v/d -no dysuria -pt laid on the stretcher and it reduced on its own -still with LLQ abd pain -no f/c -will send labs, ct abd/pelvis 02/26/18 23:[address] shows reticulonodular infiltrates - will need pulm follow up -no suymptoms of pna -no inguinal hernia -constipation, no diverticulitis -stable for d/c to home and follow up with GI, pulm, and surgery <Silvina Hill - Last Filed: 02/26/18 23:31>
[2018-02-26 20:05] LABS: BASO % 0.7 % (0-2.0); EOS % 0.9 % (0-4.5); LYMPH % 38.5 % (8-40); MCH 30.2 pg (25.7-33.7); MCHC 33.5 g/dl (32.0-35.9); MEAN CELL VOLUME 90.2 fl (80-96); MEAN PLT VOLUME 10.3 fl (7.5-11.1); MONO % 13.2 % (3.8-10.2); NEUT % 46.7 % (42.8-82.8); PLATELET COUNT 155 K/MM3 (134-434); RBC 4.32 M/mm3 (4.00-5.60); RDW 16.1 % (11.9-15.9); WHITE BLOOD COUNT 4.4 K/mm3 (4.0-10.0)
[2018-02-26 20:54] LABS: ALBUMIN 3.4 g/dl (3.4-5.0); ALK PHOS 78 U/L (45-117); ANION GAP 8 MMOL/L (8-16); BILIRUBIN,TOTAL 0.3 mg/dL (0.2-1); BLOOD UREA NITROGEN 16 mg/dL (7-18); CALCIUM 8.6 mg/dL (8.5-10.1); CHLORIDE 105 mmol/L (98-107); CO2 28 mmol/L (21-32); GLUCOSE,RANDOM 73 mg/dL (74-106); POTASSIUM 4.6 mmol/L (3.5-5.1); SGOT/AST 23 U/L (15-37); SGPT/ALT 15 U/L (13-61); SODIUM 141 mmol/L (136-145); TOT PROT 7.6 g/dl (6.4-8.2)
== END 2018-02-27 | disposition home or self-care (01) ==
LOC: JER 18:48
DX: R10.32 Left lower quadrant pain (principal); I25.10 Atherosclerotic heart disease of native coronary artery without angina pectoris; I10 Essential (primary) hypertension; I48.91 Unspecified atrial fibrillation; Z79.01 Long term (current) use of anticoagulants; I73.9 Peripheral vascular disease, unspecified; N40.0 Benign prostatic hyperplasia without lower urinary tract symptoms; M19.90 Unspecified osteoarthritis, unspecified site; M06.9 Rheumatoid arthritis, unspecified
CPT/HCPCS: 36415; 74177-TC; 80053; 83605; 85025; 99282-25

== ENCOUNTER 2018-07-11 11:02 | Emergency (ER) | payer MEDICARE, OTHER ==
[2018-07-11] MEDS ORDERED: morphine CARPU-JECT 2 MG/1 ML DISP.SYRIN IVPUSH ONE (11:19)
[2018-07-11 11:20] VITALS: BP 131/66; PULSE 62; TEMP 98; BMI 25.0
--- NOTE | 2018-07-11 11:44 | PDOC ---
History of Present Illness - General Chief Complaint: Pain, Acute Stated Complaint: RIGHT ARM PAIN Time Seen by Provider: 07/11/18 11:17 History Source: Patient, Family Exam Limitations: Language Barrier - History of Present Illness Initial Comments: 07/11/18 11:38 82 y/o male with PMH of Afib (on eliquis), HTN, CADm PAD, previous history of pancreatitis, BPH presents to the ED with right shoulder pain. According to the patients family member and him, the pain started around 4 oclock yesterday. He woke up from a nap and the pain began- he attributes it to most likely sleeping on the wrong side since he tends to sleep on that right side. He states the pain is a 10/10- denies any associated numbness/tingling. He did not try taking anything for the pain at home. Of note, he does have arthritis and states that this pain feels different than his usual arthritis pain. His usual pain is in his hands and usually in both of is shoulders. He has had surgery on both of his shoulders in the past due to his arthritis according to family member. Timing/Duration: getting worse Severity: moderate Modifying Factors: improves with: movement (makes pain worse) Associated Symptoms: reports: denies symptoms Past History - Travel Traveled outside of the country in the last 30 days: No Close contact w/someone who was outside of country & ill: No - Past Medical History Allergies/Adverse Reactions: Allergies Allergy/AdvReac Type Severity Reaction Status Date / Time No Known Allergies Allergy Verified 07/11/18 11:09 Home Medications: Ambulatory Orders Amlodipine Besylate 5 mg PO DAILY 10/12/17 Apixaban [Eliquis] 5 mg PO BID 10/12/17 Furosemide [Lasix -] 20 mg PO DAILY 10/12/17 Bimatoprost [Lumigan] 1 drop OU HS 10/29/17 Bisacodyl 5 mg PO DAILY PRN 02/26/18 Dexlansoprazole [Dexilant] 60 mg PO DAILY 02/26/18 Dextran 70/Hypromellose [Artificial Tears Eye Drops] 15 ml OP QID PRN 02/26/18 Naproxen 375 mg PO BID #10 tablet 07/11/18 Anemia: No Asthma: No Cancer: No Cardiac Disorders: Yes (a-fib) CVA: No COPD: No DVT: No Dementia: No Diabetes: No GI Disorders: Yes (pancreas, cholelithiasis) HTN: Yes Hypercholesterolemia: Yes Lung CA: Yes (?) - Surgical History Abdominal Surgery: Yes (umbilical hernia repair) Cholecystectomy: (needs sx but has not done it due to Afib) Orthopedic Surgery: Yes (had repair of both shoulders ) - Family Disease History Family Disease History: Diabetes: Father, Heart Disease: Father - Immunization History Immunization Up to Date: Yes - Suicide/Smoking/Psychosocial Hx Smoking History: Never smoked Have you smoked in the past 12 months: No Information on smoking cessation initiated: No Hx Alcohol Use: No Drug/Substance Use Hx: No Substance Use Type: None, Alcohol Hx Substance Use Treatment: No Review of Systems - Review of Systems Able to Perform ROS?: Yes Is the patient limited Yakut proficient: Yes Respiratory: No: Cough, Shortness of Breath Cardiac (ROS): No: Chest Pain ABD/GI: No: Constipated, Diarrhea, Nausea Musculoskeletal: Yes: Joint Pain (right shoulder pain) Neurological: No: Headache, Numbness, Tingling *Physical Exam - Vital Signs Last Vital Signs Temp Pulse Resp BP Pulse Ox 98 F 62 18 131/66 97 07/11/18 11:13 07/11/18 11:13 07/11/18 11:13 07/11/18 11:13 07/11/18 11:13 - Physical Exam General Appearance: Yes: Moderate Distress HEENT: positive: EOMI, GOLDIE Respiratory/Chest: positive: Lungs Clear, Normal Breath Sounds Cardiovascular: positive: Regular Rhythm, Regular Rate, S1, S2. negative: Edema Gastrointestinal/Abdominal: positive: Normal Bowel Sounds, Flat, Soft Musculoskeletal: positive: Decreased Range of Motion (decreased ROM in right shoulder; very tender to touch ; edematous in right shoulder and hand) Extremity: positive: Normal Capillary Refill, Swelling (right shoudler and right hand swelling) ED Treatment Course - LABORATORY CBC & Chemistry Diagram: 07/11/18 11:48 07/11/18 12:54 - RADIOLOGY Radiology Studies Ordered: Category Date Time Status SHOULDER-RIGHT [RAD] Stat Radiology 07/11/18 11:35 Ordered Medical Decision Making - Medical Decision Making 07/11/18 11:48 cbc/cmp , ESR/CRP ordered right shoulder XRAY ordered given 2mg of morphine if xray normal- will order CT of shoulder XRAY normal- CT ordered labs hemolyzed- resent given [address] back showing moderate effusion; no dislocation/fracture giving sling; will reasses 07/11/18 12:19 07/11/18 12:39 07/11/18 13:19 07/11/18 14:25 07/11/18 14:56 *DC/Admit/Observation/Transfer Diagnosis at time of Disposition: Swelling of shoulder joint - Discharge Dispostion Disposition: HOME Condition at time of disposition: Stable - Prescriptions Prescriptions: Naproxen 375 mg PO BID #10 tablet - Referrals Referrals: Jaleel Henry DO [Staff Physician] - 3 days Igor Cazares MD [Primary Care Provider] - 1 week - Patient Instructions Printed Discharge Instructions: Shoulder Sprain Additional Instructions: please keep the arm in the sling for a few weeks. Please take the medication Naproxen twice a day with food for 5 days. Please follow up with Dr. Henry, the orthopedist in a few days Please Follow up with Dr. Cazares within one week If your shoulder pain worsens, if you begin to experience any fevers/chest pain/ trouble breathing please return to the emergency room immediately - Post Discharge Activity - Attestations Physician Attestion: 07/11/18 16:24 Alayna Brothers
[2018-07-11] MEDS ORDERED: MORPHINE SULFATE 2 MG/ML VIAL ONE (11:46)
[2018-07-11 12:04] LABS: BASO % 0.4 % (0-2.0); EOS % 0.1 % (0-4.5); HEMATOCRIT 39.9 % (35.4-49); LYMPH % 23.7 % (8-40); MCHC 32.6 g/dl (32.0-35.9); MEAN PLT VOLUME 10.2 fl (7.5-11.1); MONO % 15.8 % (3.8-10.2); PLATELET COUNT 136 K/MM3 (134-434); RBC 4.34 M/mm3 (4.00-5.60); RDW 15.7 % (11.9-15.9); WHITE BLOOD COUNT 6.9 K/mm3 (4.0-10.0)
--- NOTE | 2018-07-11 12:10 | PDOC ---
Attending Attestation - Resident Resident Name: Alayna Brothers - ED Attending Attestation I have performed the following: I have examined & evaluated the patient, The case was reviewed & discussed with the resident, I agree w/resident's findings & plan - HPI HPI: 07/11/18 12:03 82-year-old male with history of atrial fibrillation on eliquis, arthritis status post bilateral shoulder surgeries (question arthroscopy) many years ago presents now with atraumatic right shoulder pain since yesterday. Patient took a nap during the day, awoke during the afternoon with severe right shoulder pain and swelling and inability to range. Denies any falls, denies any paresthesias, did not take anything for pain. - Physicial Exam PE: 07/11/18 12:04 Vital signs stable, afebrile Alert lying in stretcher, in mild to moderate distress secondary to right shoulder pain Exam is atraumatic Right shoulder with some soft tissue swelling and warmth, tender to palpation, mild to moderate right shoulder joint effusion. No bruising, no bony deformity but difficult to assess secondary to pain. No other humeral tenderness, full range of motion of elbow and wrist, there is some subtle soft tissue swelling in the digits of the hand on the right side though full range of motion and neurovascularly intact. - Medical Decision Making 07/11/18 12:06 82-year-old male with atraumatic R shoulder pain after sleeping on his R arm. ? strain v. hemarthrosis, low suspicion for septic joint (afebrile, not immunocompromised). unclear if he has hardware in the joint from prior surgery. neurovascularly intact. labs pain control R shoulder xray, consider CT if xray normal reassess. 07/11/18 15:27 labs wnl, no leukocytosis. elevated esr/crp as expected with chronic severe arthritis. ct shows no evidence of fracture/dislocation. moderate joint effusion not consistent with hemarthrosis. trial of toradol for arthritis flare, sling for comfort, reassess.
[2018-07-11 13:16] LABS: ERYTHROCYTE SEDIMENTATION RATE 38 mm/hr (0-20)
[2018-07-11 13:41] LABS: INR 1.47 (0.83-1.09); PROTHROMBIN TIME (PATIENT) 17.4 SEC (9.7-13.0)
[2018-07-11 13:43] LABS: ACTIVATED PTT 45.5 SECONDS (25.2-36.5)
[2018-07-11 13:53] LABS: ALK PHOS 77 U/L (45-117); ANION GAP 6 MMOL/L (8-16); BILIRUBIN,TOTAL 0.7 mg/dL (0.2-1); BLOOD UREA NITROGEN 13 mg/dL (7-18); CALCIUM 8.8 mg/dL (8.5-10.1); CHLORIDE 103 mmol/L (98-107); CO2 29 mmol/L (21-32); CREATININE 0.6 mg/dL (0.55-1.3); GLUCOSE,RANDOM 101 mg/dL (74-106); POTASSIUM 3.5 mmol/L (3.5-5.1); SGOT/AST 12 U/L (15-37); SGPT/ALT 17 U/L (13-61); SODIUM 139 mmol/L (136-145); TOT PROT 7.4 g/dl (6.4-8.2)
[2018-07-11] MEDS ORDERED: KETOROLAC TROMETHAMINE 30 MG/1 ML VIAL IVPUSH ONE (14:24)
[2018-07-11] MEDS ORDERED: KETOROLAC TROMETHAMINE 30 MG/1 ML VIAL ONE ×2 (14:40→15:26)
== END 2018-07-11 16:36 | disposition home or self-care (01) ==
LOC: JER 11:02
PROC: 3E033NZ Introduction of Analgesics, Hypnotics, Sedatives into Peripheral Vein, Percutaneous Approach (ICD-10-PCS; principal; 2018-07-11)
PROC: 3E0333Z Introduction of Anti-inflammatory into Peripheral Vein, Percutaneous Approach (ICD-10-PCS; 2018-07-11)
DX: M25.511 Pain in right shoulder (principal); I25.10 Atherosclerotic heart disease of native coronary artery without angina pectoris; I10 Essential (primary) hypertension; I48.91 Unspecified atrial fibrillation; Z79.01 Long term (current) use of anticoagulants; I73.9 Peripheral vascular disease, unspecified; N40.0 Benign prostatic hyperplasia without lower urinary tract symptoms; Z87.19 Personal history of other diseases of the digestive system
CPT/HCPCS: 36415; 73030-TC-RT-FY; 73200-TC-RT; 80053; 85025; 85610; 85651; 85730; 86140; 96374; 96375; 99282-25